=== PATIENT | female | born 1955 | race Caucasian/White ===

== ENCOUNTER → 2019-01-03 08:58 | Outpatient (CLI) | payer OTHER, SELFPAY ==
--- NOTE | 2019-01-03 09:13 | DI.CT.S_ITS ---
PROCEDURE: CT ANGIO CHEST INDICATIONS: Other forms of dyspnea TECHNIQUE: After the administration of intravenous contrast, 2 mm thick sections acquired from the pulmonary apices to the posterior costophrenic angles. 3-dimensional maximum intensity projection (MIP) coronal and sagittal reformats were then acquired through the thorax. For radiation dose reduction, the following was used: automated exposure control, adjustment of mA and/or kV according to patient size. COMPARISON: [facility], , CT PULMONARY EMBOLUS, 01/04/2006, 13:33. FINDINGS: Image quality: Excellent. Pulmonary arteries: Pulmonary arteries are normal in size, and demonstrate no intraluminal filling defects to suggest central pulmonary embolism. Lungs and pleura: The right lower lobe appears to have been resected. There is a surgical suture line within the right upper lobe, with adjacent scarring, extending to the right hilum. No pleural effusions or pneumothorax. Central and peripheral airways are patent. Mediastinum: Heart size is enlarged, without pericardial effusion. There is calcification of the coronary vasculature. No mediastinal or hilar adenopathy. Thoracic aorta is normal in caliber and enhancement. Esophagus is normal in caliber. There is a new small hiatal hernia. Bones and chest wall: Status post right thoracotomy. No suspicious bony lesions. Ribs and thoracic spine appear intact throughout. Thyroid gland is within normal limits as visualized. No axillary or supraclavicular adenopathy. Abdomen: Visualized portions of the upper abdomen demonstrate multiple calcifications within the gallbladder lumen, and are otherwise unremarkable. IMPRESSION: 1. Postsurgical sequelae. 2. No pulmonary embolus. 3. Coronary artery disease. 4. Small hiatal hernia. 5. Cholelithiasis. Dictated by: Sarah Barnard M.D. on 01/03/2019 at 11:11 Approved by: Sarah Barnard M.D. on 01/03/2019 at 11:18
== END ==
PROVIDERS: PCP Family Medicine; Visit Provider Family Medicine
DX: R06.09 Other forms of dyspnea (principal); I51.7 Cardiomegaly; K44.9 Diaphragmatic hernia without obstruction or gangrene; I25.10 Atherosclerotic heart disease of native coronary artery without angina pectoris; K80.20 Calculus of gallbladder without cholecystitis without obstruction; Z85.118 Personal history of other malignant neoplasm of bronchus and lung
CPT/HCPCS: 71275; Q9967

== ENCOUNTER → 2020-08-19 10:19 | Outpatient (CLI) | payer MEDICARE, SELFPAY ==
[2020-08-19 19:29] LABS: Add Manual Diff / Slide Review NO; Basophils Absolute Auto 100 /uL (0-100); Basophils Percent Auto 0.8 % (0-2); Eosinophils Absolute Auto 0 /uL (0-450); Eosinophils Percent Auto 0.3 % (2-4); Hematocrit 42.6 % (36-46); Hemoglobin 14.1 g/dL (12.0-16.0); Lymphocytes Absolute Auto 900 /uL (1100-4500); Mean Corpuscular Hemoglobin 31.3 PG (26-34); Mean Corpuscular Volume 94.8 fL (80-100); Monocytes Absolute Auto 500 /uL (0-900); Monocytes Percent Auto 6.7 % (3-14); Neutrophils Absolute Auto 5900 /uL (1500-7000); Neutrophils Percent Auto 80.2 % (50-75); Platelet Count 348 X10^3/uL (150-400); Red Blood Cell Count 4.49 X10^6/uL (4.0-5.2); Red Cell Distribution Width 14.7 % (11.6-14.8); White Blood Cell Count 7.3 X10^3/uL (4.5-11.0)
[2020-08-19 20:03] LABS: Alanine Aminotransferase 13 IU/L (<35); Albumin 4.1 g/dL (3.5-5.0); Albumin Globulin Ratio 1.5 (1.0-2.8); Alkaline Phosphatase 69 U/L (38-126); Aspartate Aminotransferase 23 IU/L (14-36); BUN Creatinine Ratio 24.2 (6-22); Bilirubin Total 1.2 mg/dL (0.2-1.3); Blood Urea Nitrogen 16 mg/dL (7-17); C-Reactive Protein Quant < 0.5 mg/dL (<1.0); Calcium 10.3 mg/dL (8.4-10.2); Carbon Dioxide 25 mmol/L (22-32); Chloride 104 mmol/L (98-107); Erythrocyte Sedimentation Rate 4 MM/HR (0-20); Estimated Glomerular Filt Rate > 60.0 mL/min (>60); Globulin 2.8 g/dL (1.7-4.1); Glucose 110 mg/dL (80-110); HEMOLYSIS < 15 (0-50); Potassium 4.3 mmol/L (3.4-5.1); Sodium 138 mmol/L (137-145); Total Protein 6.9 g/dL (6.3-8.2)
[2020-08-19 20:20] LABS: Free T3, Triiodothyronine Free 3.85 pg/mL (2.77-5.27)
[2020-08-19 20:34] LABS: TSH w/ Reflex to FT4 < 0.02 uIU/mL (0.47-4.68)
[2020-08-19 20:59] LABS: Free T4, Direct Thyroxine 1.72 ng/dL (0.78-2.19)
== END ==
PROVIDERS: PCP Family Medicine; Visit Provider Physician Assistant Medical
DX: M47.816 Spondylosis without myelopathy or radiculopathy, lumbar region (principal)
CPT/HCPCS: 80053; 84439; 84443; 84481; 85025; 85651; 86140

== ENCOUNTER → 2020-08-26 09:00 | Outpatient (CLI) | payer MEDICARE, SELFPAY ==
[2020-08-26 19:05] LABS: Alanine Aminotransferase 12 IU/L (<35); Albumin 4.2 g/dL (3.5-5.0); Albumin Globulin Ratio 1.6 (1.0-2.8); Alkaline Phosphatase 65 U/L (38-126); Aspartate Aminotransferase 22 IU/L (14-36); BUN Creatinine Ratio 17.1 (6-22); Bilirubin Total 1.3 mg/dL (0.2-1.3); Blood Urea Nitrogen 12 mg/dL (7-17); Calcium 10.4 mg/dL (8.4-10.2); Carbon Dioxide 27 mmol/L (22-32); Chloride 102 mmol/L (98-107); Estimated Glomerular Filt Rate > 60.0 mL/min (>60); Globulin 2.7 g/dL (1.7-4.1); Glucose 112 mg/dL (80-110); HEMOLYSIS 16 (0-50); Potassium 4.1 mmol/L (3.4-5.1); Sodium 138 mmol/L (137-145); Total Protein 6.9 g/dL (6.3-8.2)
[2020-08-26 19:22] LABS: Prolactin 3.7 ng/mL (3.0-18.6)
[2020-08-26 19:36] LABS: TSH w/ Reflex to FT4 0.25 uIU/mL (0.47-4.68)
[2020-08-26 20:23] LABS: Free T4, Direct Thyroxine 1.44 ng/dL (0.78-2.19)
[2020-08-28 12:09] LABS: Calcium 10.1 mg/dL (8.7-10.3); Parathyroid Hormone, Intact 34 pg/mL (15-65)
== END ==
PROVIDERS: PCP Physician Assistant Medical; Visit Provider Physician Assistant Medical
DX: E83.52 Hypercalcemia (principal); M47.816 Spondylosis without myelopathy or radiculopathy, lumbar region; R25.1 Tremor, unspecified; R53.83 Other fatigue
CPT/HCPCS: 80053; 82310; 83970; 84146; 84439; 84443

== ENCOUNTER 2020-09-03 13:40 | Emergency (ER) | payer MEDICARE, SELFPAY ==
[2020-09-03] VITALS (15 sets, daily range): BP systolic 155–179; BP diastolic 77–98; PULSE 62–89; RESP 12–27; TEMP 36.8–37; O2SAT 93–98; BMI 21.6
--- NOTE | 2020-09-03 14:02 | DI.CT.S_ITS ---
PROCEDURE: CT HEAD/BRAIN WO CON INDICATIONS: dizzy, gait changes, h/o lung cancer with chemo 2006 TECHNIQUE: Noncontrast 4.5 mm thick angled axial sections acquired from the foramen magnum to the vertex, with coronal and sagittal reformats. For radiation dose reduction, the following was used: automated exposure control, adjustment of mA and/or kV according to patient size. COMPARISON: None. FINDINGS: Image quality: Excellent. CSF spaces: Basal cisterns are patent. No extra-axial fluid collections. The ventricles are symmetric in size and shape. A arachnoid cyst is suspected in the left side of the posterior fossa. Brain: No intracranial bleeds or masses. There is mild cerebral volume loss for age, with resultant ventricular and sulcal prominence. There are mild periventricular and deep white matter chronic small vessel ischemic changes. There is intracranial internal carotid artery atherosclerosis. Skull and face: Calvarium and visualized facial bones appear intact, without suspicious lesions. Sinuses: Visualized sinuses and mastoids are clear. IMPRESSION: 1. No acute intracranial abnormalities on this noncontrast enhanced CT. If clinical suspicion for cerebral metastasis is high, MRI with and without contrast is suggested for follow-up evaluation. Dictated by: Maria Guadalupe Weaver M.D. on 09/03/2020 at 15:11 Approved by: Maria Guadalupe Weaver M.D. on 09/03/2020 at 15:14
[2020-09-03 14:35] LABS: Add Manual Diff / Slide Review NO; Basophils Absolute Auto 0 /uL (0-100); Basophils Percent Auto 0.6 % (0-2); Eosinophils Absolute Auto 0 /uL (0-450); Eosinophils Percent Auto 0.6 % (2-4); Hematocrit 42.3 % (36-46); Lymphocytes Absolute Auto 1200 /uL (1100-4500); Mean Corpuscular HGB Conc 33.1 % (30-36); Mean Corpuscular Hemoglobin 31.1 PG (26-34); Monocytes Absolute Auto 600 /uL (0-900); Monocytes Percent Auto 7.7 % (3-14); Neutrophils Absolute Auto 5400 /uL (1500-7000); Neutrophils Percent Auto 75.1 % (50-75); Platelet Count 348 X10^3/uL (150-400); Red Blood Cell Count 4.49 X10^6/uL (4.0-5.2); Red Cell Distribution Width 14.6 % (11.6-14.8); White Blood Cell Count 7.2 X10^3/uL (4.5-11.0)
[2020-09-03 14:45] LABS: Alanine Aminotransferase 14 IU/L (<35); Albumin 4.3 g/dL (3.5-5.0); Albumin Globulin Ratio 1.5 (1.0-2.8); Alkaline Phosphatase 44 U/L (38-126); Aspartate Aminotransferase 27 IU/L (14-36); BUN Creatinine Ratio 17.5 (6-22); Bilirubin Total 1.5 mg/dL (0.2-1.3); Blood Urea Nitrogen 10 mg/dL (7-17); Calcium 9.8 mg/dL (8.4-10.2); Carbon Dioxide 25 mmol/L (22-32); Chloride 105 mmol/L (98-107); Estimated Glomerular Filt Rate > 60.0 mL/min (>60); Globulin 2.9 g/dL (1.7-4.1); Glucose 154 mg/dL (80-110); Potassium 5.2 mmol/L (3.4-5.1); Sodium 137 mmol/L (137-145); Total Protein 7.2 g/dL (6.3-8.2)
[2020-09-03 14:51] LABS: HEMOLYSIS 104 (0-50)
--- NOTE | 2020-09-03 16:52 | ED_ITS ---
HPI - General Adult <Nelda Chow MD - Last Filed: 09/03/20 18:18> General Chief complaint: Dizziness Stated complaint: referred by PA-C for weight loss, shaking, stress Time Seen by Provider: 09/03/20 14:01 Source: patient and family Mode of arrival: Ambulatory History of Present Illness HPI narrative: 64-year-old woman with a distant history of lung cancer treated with surgery and chemo and has been disease free for approximately 20 years, presents with worsening constellation of symptoms over the past 2 months. She states that her symptoms started on July 02 after 4 days of a very stressful episode. Coming out of those 4 days she felt something was ?wrong?. She describes an odd gait that is actually of wide-based normal shuffling type gait, increasing hand tremor dizzy when she is turning over in bed and a 20 lb weight loss associated with no appetite increasing weakness and description of significant stress interfering with sleep. She does not describe any pain. She notes that her bowels have not been as frequent but she has not been eating as much. She has been trying to increase protein with protein shakes to try and slow the weight loss. She does not describe headaches. She does note a change in her handwriting skills, she is right-handed and a bit more difficulty with her right leg. She specifically complains of no fevers or chills, no vomiting, no diarrhea, no abdominal pain, no dyspnea or orthopnea. Related Data Home Medications Medication Instructions Recorded Confirmed flecainide 100 mg PO BID PRN #0 11/09/15 08/26/20 acetaminophen PO 07/27/20 08/26/20 biotin PO 07/27/20 08/26/20 cholecalciferol (vitamin D3) 50 50 mcg PO DAILY 07/27/20 08/26/20 mcg (2,000 unit) capsule magnesium chloride PO 07/27/20 08/26/20 vitamin B complex PO 08/19/20 08/26/20 Allergies Allergy/AdvReac Type Severity Reaction Status Date / Time diphenhydramine Allergy Mild Verified 09/03/20 13:51 [From Benadryl] paclitaxel [From TAXOL] Allergy Mild Verified 09/03/20 13:51 lorazepam [From Ativan] Allergy Unknown Verified 09/03/20 13:51 adhesive AdvReac Unknown rash Verified 09/03/20 13:51 Review of Systems <Nelda Chow MD - Last Filed: 09/03/20 18:18> Review of Systems Narrative: Remainder of complete review of systems is otherwise unremarkable except for that included in the HPI. 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 Able to give a complete and coherent history. Well-nourished well-developed HEENT: Moist mucous membranes, normal sclera with reactive pupils, extraocular eye movement is intact Neck: No JVD, supple Respiratory: Lungs are clear to auscultation, no wheezing no rales no rhonchi. Full and symmetrical air movement Cardiac: Regular rate and rhythm no murmurs no bruits Abdomen: Soft, nontender, good bowel tones, no flank pain Skin: Warm and dry, no rashes Neurologic: Subtle neurologic abnormalities include a fine tremor with extension. Increased instability with Romberg testing. Slightly wide-based shuffling gait. She is able to stand on either leg independently but feels that she is less steady and weaker on the right side. There is no sensory changes that she is appreciated. NIH score is 0 Extremities: No trauma, well perfused Psych: Cooperative, appropriate insight and affect Initial Vital Signs Initial Vital Signs: Vital Signs Temperature 98.6 F 09/03/20 13:47 Pulse Rate 89 09/03/20 13:47 Respiratory Rate 12 09/03/20 13:47 Blood Pressure 164/87 H 09/03/20 13:47 Pulse Oximetry 96 09/03/20 13:47 <Vickie Odom DO - Last Filed: 09/04/20 01:29> Initial Vital Signs Initial Vital Signs: Vital Signs Temperature 98.6 F 09/03/20 13:47 Pulse Rate 89 09/03/20 13:47 Respiratory Rate 12 09/03/20 13:47 Blood Pressure 164/87 H 09/03/20 13:47 Pulse Oximetry 96 09/03/20 13:47 Course <Nelda Chow MD - Last Filed: 09/03/20 18:18> Orders Ordered: ED Orders 09/03/20 17:14 MR head/brain wo/w con Stat XR chest 2V Stat Vital Signs Vital signs: Vital Signs - 8 hr 09/03/20 17:30 09/03/20 18:00 09/03/20 18:53 Temperature Pulse Rate 69 65 62 Respiratory Rate 27 H 21 Blood Pressure 167/84 H 155/82 H Pulse Oximetry 96 97 93 09/03/20 18:54 09/03/20 19:00 09/03/20 19:30 Temperature Pulse Rate 64 65 66 Respiratory Rate Blood Pressure 169/83 H Pulse Oximetry 98 98 98 09/03/20 20:00 09/03/20 20:16 09/03/20 20:30 Temperature 98.3 F Pulse Rate 66 74 Respiratory Rate Blood Pressure 155/77 H Pulse Oximetry 96 95 <Vickie Odom DO - Last Filed: 09/04/20 01:29> Orders Ordered: ED Orders 09/03/20 17:14 MR head/brain wo/w con Stat XR chest 2V Stat Vital Signs Vital signs: Vital Signs - 8 hr 09/03/20 17:30 09/03/20 18:00 09/03/20 18:53 Temperature Pulse Rate 69 65 62 Respiratory Rate 27 H 21 Blood Pressure 167/84 H 155/82 H Pulse Oximetry 96 97 93 09/03/20 18:54 09/03/20 19:00 09/03/20 19:30 Temperature Pulse Rate 64 65 66 Respiratory Rate Blood Pressure 169/83 H Pulse Oximetry 98 98 98 09/03/20 20:00 09/03/20 20:16 09/03/20 20:30 Temperature 98.3 F Pulse Rate 66 74 Respiratory Rate Blood Pressure 155/77 H Pulse Oximetry 96 95 Medical Decision Making <Nelda Chow MD - Last Filed: 09/03/20 18:18> Medical Records Medical records reviewed: Yes I reviewed the patient's medical records. Lab Data Lab results reviewed: Yes I reviewed the patient's lab results. Result diagrams: 09/03/20 14:25 09/03/20 14:25 Labs: Lab Results 09/03/20 09/03/20 Range/Units 14:25 14:25 WBC 7.2 (4.5-11.0) X10^3/uL RBC 4.49 (4.0-5.2) X10^6/uL Hgb 14.0 (12.0-16.0) g/dL Hct 42.3 (36-46) % MCV 94.0 (80-100) fL MCH 31.1 (26-34) PG MCHC 33.1 (30-36) % RDW 14.6 (11.6-14.8) % Plt Count 348 (150-400) X10^3/uL Neut % (Auto) 75.1 H (50-75) % Lymph % (Auto) 16.0 L (25-40) % Wilkinson % (Auto) 7.7 (3-14) % Eos % (Auto) 0.6 L (2-4) % Baso % (Auto) 0.6 (0-2) % Neut # (Auto) 5400 (4691-9680) /uL Lymph # (Auto) 1200 (2109-4644) /uL Wilkinson # (Auto) 600 (0-900) /uL Eos # (Auto) 0 (0-450) /uL Baso # (Auto) 0 (0-100) /uL Sodium 137 (137-145) mmol/L Potassium 5.2 H (3.4-5.1) mmol/L Chloride 105 (98-107) mmol/L Carbon Dioxide 25 (22-32) mmol/L BUN 10 (7-17) mg/dL Creatinine 0.57 (0.52-1.04) mg/dL Estimated GFR > 60.0 (>60) mL/min BUN/Creatinine Ratio 17.5 (6-22) Glucose 154 H (80-110) mg/dL Calcium 9.8 (8.4-10.2) mg/dL Magnesium 2.0 (1.6-2.3) mg/dL Total Bilirubin 1.5 H (0.2-1.3) mg/dL AST 27 (14-36) IU/L ALT 14 (<35) IU/L Alkaline Phosphatase 44 (38-126) U/L Total Protein 7.2 (6.3-8.2) g/dL Albumin 4.3 (3.5-5.0) g/dL Globulin 2.9 (1.7-4.1) g/dL Albumin/Globulin Ratio 1.5 (1.0-2.8) Urine Dip Bedside Urine Glucose Negative Bedside Urine Bilirubin - Negative Bedside Urine Ketone - Negative Urine Specific Bartley 1.015 Bedside Urine Occult Blood - Negative Bedside Urine pH 7.0 Bedside Urine Protein - Negative Bedside Urine Urobilinogen - Negative Bedside Urine Nitrite - Negative Bedside Urine Leukocytes - Negative Esterase Point of care testing: Urine Dip Bedside Urine Glucose Negative Bedside Urine Bilirubin - Negative Bedside Urine Ketone - Negative Urine Specific Bartley 1.015 Bedside Urine Occult Blood - Negative Bedside Urine pH 7.0 Bedside Urine Protein - Negative Bedside Urine Urobilinogen - Negative Bedside Urine Nitrite - Negative Bedside Urine Leukocytes - Negative Esterase Imaging Data CT scan - head: Radiologist's Impression: FINDINGS: Image quality: Excellent. CSF spaces: Basal cisterns are patent. No extra-axial fluid collections. The ventricles are symmetric in size and shape. A arachnoid cyst is suspected in the left side of the posterior fossa. Brain: No intracranial bleeds or masses. There is mild cerebral volume loss for age, with resultant ventricular and sulcal prominence. There are mild periventricular and deep white matter chronic small vessel ischemic changes. There is intracranial internal carotid artery atherosclerosis. Skull and face: Calvarium and visualized facial bones appear intact, without suspicious lesions. Sinuses: Visualized sinuses and mastoids are clear. IMPRESSION: 1. No acute intracranial abnormalities on this noncontrast enhanced CT. If clinical suspicion for cerebral metastasis is high, MRI with and without contrast is suggested for follow-up evaluation. Dictated by: Maria Guadalupe Weaver M.D. on 09/03/2020 at 15:11 Chest x-ray: Radiologist's Impression: FINDINGS: Surgical changes and devices: Staple line projecting in the right apex. Lungs and pleura: Scattered subsegmental scarring and/or atelectasis. No acute consolidation. No pleural effusions or pneumothorax. Mediastinum: Mediastinal contours are normal. Heart size is normal. Bones and chest wall: No suspicious bony abnormalities. Soft tissues appear unremarkable. IMPRESSION: No acute disease. Dictated by: Tito Floyd M.D. on 09/03/2020 at 17:45 MDM Narrative Medical decision making narrative: 64-year-old woman with 2 months of weight loss, progressive weakness, subtle right-sided findings including hand writing difficulty and less ability to balance on her right leg. Overall loss of appe tite, poor sleep and increased anxiety. Initial blood work is unremarkable and head CT is somewhat reassuring. Chest x- ray is currently pending. Based on her findings possibility of a brainstem str elie or small tumor is entertained and an MRI of the brain with and without contrast is ordered. Given the lack of findings on chest and abdomen exam not sure that CT scanning is appropriate yet. Chest x-ray is unremarkable. MRI is range for 6:00 p.m. tonight. Care is turned over to Dr. Odom <Vickie Odom, DO - Last Filed: 09/04/20 01:29> Lab Data Labs: Lab Results 09/03/20 09/03/20 Range/Units 14:25 14:25 WBC 7.2 (4.5-11.0) X10^3/uL RBC 4.49 (4.0-5.2) X10^6/uL Hgb 14.0 (12.0-16.0) g/dL Hct 42.3 (36-46) % MCV 94.0 (80-100) fL MCH 31.1 (26-34) PG MCHC 33.1 (30-36) % RDW 14.6 (11.6-14.8) % Plt Count 348 (150-400) X10^3/uL Neut % (Auto) 75.1 H (50-75) % Lymph % (Auto) 16.0 L (25-40) % Wilkinson % (Auto) 7.7 (3-14) % Eos % (Auto) 0.6 L (2-4) % Baso % (Auto) 0.6 (0-2) % Neut # (Auto) 5400 (4577-8178) /uL Lymph # (Auto) 1200 (5328-5321) /uL Wilkinson # (Auto) 600 (0-900) /uL Eos # (Auto) 0 (0-450) /uL Baso # (Auto) 0 (0-100) /uL Sodium 137 (137-145) mmol/L Potassium 5.2 H (3.4-5.1) mmol/L Chloride 105 (98-107) mmol/L Carbon Dioxide 25 (22-32) mmol/L BUN 10 (7-17) mg/dL Creatinine 0.57 (0.52-1.04) mg/dL Estimated GFR > 60.0 (>60) mL/min BUN/Creatinine Ratio 17.5 (6-22) Glucose 154 H (80-110) mg/dL Calcium 9.8 (8.4-10.2) mg/dL Magnesium 2.0 (1.6-2.3) mg/dL Total Bilirubin 1.5 H (0.2-1.3) mg/dL AST 27 (14-36) IU/L ALT 14 (<35) IU/L Alkaline Phosphatase 44 (38-126) U/L Total Protein 7.2 (6.3-8.2) g/dL Albumin 4.3 (3.5-5.0) g/dL Globulin 2.9 (1.7-4.1) g/dL Albumin/Globulin Ratio 1.5 (1.0-2.8) Urine Dip Bedside Urine Glucose Negative Bedside Urine Bilirubin - Negative Bedside Urine Ketone - Negative Urine Specific Bartley 1.015 Bedside Urine Occult Blood - Negative Bedside Urine pH 7.0 Bedside Urine Protein - Negative Bedside Urine Urobilinogen - Negative Bedside Urine Nitrite - Negative Bedside Urine Leukocytes - Negative Esterase Point of care testing: Urine Dip Bedside Urine Glucose Negative Bedside Urine Bilirubin - Negative Bedside Urine Ketone - Negative Urine Specific Bartley 1.015 Bedside Urine Occult Blood - Negative Bedside Urine pH 7.0 Bedside Urine Protein - Negative Bedside Urine Urobilinogen - Negative Bedside Urine Nitrite - Negative Bedside Urine Leukocytes - Negative Esterase Imaging Data MR brain: Radiologist's Impression: PROCEDURE: MR HEAD/BRAIN WO/W CON INDICATIONS: right side weakness, weight loss, gait change, tremor, dizzy TECHNIQUE: Noncontrast axial T1 spin echo, axial T2 fast spin echo, sagittal and axial FLAIR, coronal T2 fast spin echo, axial gradient echo, axial diffusion and ADC through the brain. After the administration of contrast, axial and coronal T1 spin echo with fat saturation through the brain. COMPARISON: None. FINDINGS: Image quality: Excellent. CSF spaces: Basal cisterns are patent. No extra-axial fluid collections. Ventricles are normal in size and shape. Brain: No midline shift. No intracranial bleeds or masses. No abnormal intracranial enhancement. There is cerebral volume loss for age. There is periventricular white matter chronic small vessel ischemic change. The brainstem appears normal. Diffusion-weighted images demonstrate no acute ischemic insults. No chronic ischemic insults. Normal intravascular flow voids are present. Skull and face: Calvarial marrow is normal in signal. Orbits appear normal. Sinuses: Sinuses and mastoids appear clear. IMPRESSION: No evidence of acute ischemia. No acute intracranial signal abnormality or enhancement. Dictated by: Tito Floyd M.D. on 09/03/2020 at 20:08 [facility] Narrative Medical decision making narrative: Received sign-out from Dr. Chow is seen evaluated patient myself. She has been having ongoing symptoms is for a number of weeks nothing new today. MRI head CT and blood work were overall reassuring however symptoms are still concerning. At this time I discussed his with the patient in significant other will likely need referral to Neurology in further outpatient testing and close follow-up. They have an appointment already with PCP for next week. Discharge Plan Departure Patient Disposition: Home Clinical Impression: Dizziness Instructions: DI for Dizziness-Nonvertigo Activity Restrictions/Additional Instructions: *You have been diagnosed with dizziness *What to do: At this time you had workup in the emergency department which included head CT MRI brain and blood work all of which were reassuring. However it is recommended based on your symptoms that you have a neurology referral. *Continue to take medications as directed *Follow up with your primary care provider in 2-3 days *Return to ER if you should have increased falls, balance issues, weakness, visual changes speech changes, chest pain palpitations or shortness of breath or any new, worsening or concerning symptoms Prescriptions: No Action flecainide 100 MG tablet 100 mg PO BID PRNQty: 0 RF: 0 vitamin B complex PO RF: 0 biotin PO RF: 0 acetaminophen PO RF: 0 cholecalciferol (vitamin D3) 50 mcg (2,000 unit) capsule 50 mcg PO DAILY RF: 0 magnesium chloride PO RF: 0 Referrals: Phuong Gonzales PA-C [Primary Care Provider] -
--- NOTE | 2020-09-03 17:14 | DI.RAD.S_ITS ---
PROCEDURE: XR CHEST 2V INDICATIONS: weight loss, distant h/o right side lung cancer TECHNIQUE: 2 views of the chest were acquired. COMPARISON: None. FINDINGS: Surgical changes and devices: Staple line projecting in the right apex. Lungs and pleura: Scattered subsegmental scarring and/or atelectasis. No acute consolidation. No pleural effusions or pneumothorax. Mediastinum: Mediastinal contours are normal. Heart size is normal. Bones and chest wall: No suspicious bony abnormalities. Soft tissues appear unremarkable. IMPRESSION: No acute disease. Dictated by: Tito Floyd M.D. on 09/03/2020 at 17:45 Approved by: Tito Floyd M.D. on 09/03/2020 at 17:46
--- NOTE | 2020-09-03 17:14 | DI.MRI.S_ITS ---
PROCEDURE: MR HEAD/BRAIN WO/W CON INDICATIONS: right side weakness, weight loss, gait change, tremor, dizzy TECHNIQUE: Noncontrast axial T1 spin echo, axial T2 fast spin echo, sagittal and axial FLAIR, coronal T2 fast spin echo, axial gradient echo, axial diffusion and ADC through the brain. After the administration of contrast, axial and coronal T1 spin echo with fat saturation through the brain. COMPARISON: None. FINDINGS: Image quality: Excellent. CSF spaces: Basal cisterns are patent. No extra-axial fluid collections. Ventricles are normal in size and shape. Brain: No midline shift. No intracranial bleeds or masses. No abnormal intracranial enhancement. There is cerebral volume loss for age. There is periventricular white matter chronic small vessel ischemic change. The brainstem appears normal. Diffusion-weighted images demonstrate no acute ischemic insults. No chronic ischemic insults. Normal intravascular flow voids are present. Skull and face: Calvarial marrow is normal in signal. Orbits appear normal. Sinuses: Sinuses and mastoids appear clear. IMPRESSION: No evidence of acute ischemia. No acute intracranial signal abnormality or enhancement. Dictated by: Tito Floyd M.D. on 09/03/2020 at 20:08 Approved by: Tito Floyd M.D. on 09/03/2020 at 20:11
== END 2020-09-03 20:31 | disposition home or self-care (01) ==
PROVIDERS: Emergency Medicine; Emergency Provider Emergency Medicine; PCP Physician Assistant Medical
DX: R42 Dizziness and giddiness (principal); R53.1 Weakness; R63.4 Abnormal weight loss; Z85.118 Personal history of other malignant neoplasm of bronchus and lung
CPT/HCPCS: 36415; 70450; 70553; 71046; 80053; 81003; 83735; 85025; 99284; A9579

== ENCOUNTER 2020-10-09 13:51 | Emergency (ER) | payer MEDICARE, SELFPAY ==
[2020-10-09] VITALS (8 sets, daily range): BP systolic 145–171; BP diastolic 70–89; PULSE 64–85; RESP 17–18; TEMP 36.4; O2SAT 94–99; BMI 19.4
[2020-10-09 14:48] LABS: Add Manual Diff / Slide Review NO; Basophils Absolute Auto 0 /uL (0-100); Basophils Percent Auto 0.7 % (0-2); Eosinophils Absolute Auto 0 /uL (0-450); Eosinophils Percent Auto 0.5 % (2-4); Hematocrit 42.4 % (36-46); Hemoglobin 14.4 g/dL (12.0-16.0); Lymphocytes Absolute Auto 1000 /uL (1100-4500); Mean Corpuscular Volume 94.3 fL (80-100); Monocytes Absolute Auto 700 /uL (0-900); Monocytes Percent Auto 8.8 % (3-14); Neutrophils Absolute Auto 5800 /uL (1500-7000); Platelet Count 306 X10^3/uL (150-400); Red Blood Cell Count 4.49 X10^6/uL (4.0-5.2); Red Cell Distribution Width 14.5 % (11.6-14.8); White Blood Cell Count 7.5 X10^3/uL (4.5-11.0)
[2020-10-09 14:56] LABS: Alanine Aminotransferase 17 IU/L (<35); Albumin 4.1 g/dL (3.5-5.0); Albumin Globulin Ratio 1.6 (1.0-2.8); Alkaline Phosphatase 55 U/L (38-126); Aspartate Aminotransferase 22 IU/L (14-36); BUN Creatinine Ratio 19.5 (6-22); Bilirubin Total 1.1 mg/dL (0.2-1.3); Blood Urea Nitrogen 16 mg/dL (7-17); Calcium 9.8 mg/dL (8.4-10.2); Carbon Dioxide 27 mmol/L (22-32); Chloride 102 mmol/L (98-107); Estimated Glomerular Filt Rate > 60.0 mL/min (>60); Globulin 2.6 g/dL (1.7-4.1); Glucose 100 mg/dL (80-110); HEMOLYSIS < 15 (0-50); Potassium 3.9 mmol/L (3.4-5.1); Sodium 138 mmol/L (137-145); Total Protein 6.7 g/dL (6.3-8.2)
--- NOTE | 2020-10-09 16:22 | ED_ITS ---
HPI - Weakness General Chief complaint: Weakness Stated complaint: weakness Time Seen by Provider: 10/09/20 14:45 Source: patient and family Mode of arrival: Ambulatory Limitations: no limitations History of Present Illness HPI Narrative: Patient is a 64-year-old female with remote history of lung cancer currently being worked up for parkinsonism, presenting today with increased weakness. She and state she has actually seen evaluated here September 03 where she had full workup for dizziness including MRI. His but thought at that time she might have the beginnings of parkinsonism. She got set up with [facility] who she was then referred to a movement disorder specialist whom she saw remotely 1 week ago. In that specific provider was concerned for possible underlying cancer. She has had a 35 lb weight loss over the last 3 months. She has early satiety. states that she generally w akes up his weak and possibly get strength throughout the day. However today she stays she was little weaker than normal she is quite anxious about what the last provider said in regards to an underlying malignancy. They have an appointment with a new primary care provider on Monday which is in about 5 days. states that she has a shuffling gait she holds her hands close to her her handwriting has gotten small all things coinciding with Parkinson's Related Data Home Medications Medication Instructions Recorded Confirmed flecainide 100 mg tablet 100 mg PO BID PRN #0 11/09/15 09/10/20 acetaminophen PO 07/27/20 09/10/20 biotin PO 07/27/20 09/10/20 cholecalciferol (vitamin D3) 50 50 mcg PO DAILY 07/27/20 09/10/20 mcg (2,000 unit) capsule magnesium chloride PO 07/27/20 09/10/20 vitamin B complex [B PO 08/19/20 09/10/20 Complex-Vitamin B12] Allergies Allergy/AdvReac Type Severity Reaction Status Date / Time diphenhydramine Allergy Mild Verified 10/09/20 14:14 [From Benadryl] paclitaxel [From TAXOL] Allergy Mild Verified 10/09/20 14:14 lorazepam [From Ativan] Allergy Unknown Verified 10/09/20 14:14 adhesive AdvReac Unknown rash Verified 10/09/20 14:14 Review of Systems Review of Systems Narrative: GENERAL: Denies chills, fatigue, malaise, fever, sweats, travel HEENT: Denies sinus pain, ear pain, sore throat, difficulty swallowing, neck pain RESPIRATORY: Denies dyspnea, cough, wheezing, hemoptysis, sputum. CARDIOVASCULAR: Denies chest pain, palpitations, orthopnea, edema GASTROINTESTINAL: Denies nausea, vomiting, abdominal pain, diarrhea, c onstipation, melena. : Denies dysuria, frequency, incontinence, hematuria, urinary retention, flank pain. MUSCULOSKELETAL: Denies weakness, joint pain, or bony pain SKIN: No rash, no erythema, no pruritus NEUROLOGIC: See HPI PSYCHIATRIC: No concerning psychosocial issues. 12 point review of systems is negative except for those stated above and HPI ROS Unobtainable: All systems reviewed & are unremarkable except as noted in HPI and below Constitutional Constitutional: Reports anorexia, Reports fatigue, Reports poor appetite, Reports weakness and Reports weight loss ENT Ears, Nose, Mouth, and Throat: Reports dizziness Cardiovascular Cardiovascular: Denies chest pain, Denies irregular heart rhythm, Denies leg edema and Denies dyspnea Respiratory Respiratory: Denies cough and Denies dyspnea Gastrointestinal Gastrointestinal: Reports as per HPI, Denies melena and Reports nausea Genitourinary Genitourinary: Denies urinary hesitancy and Denies urinary urgency Integumentary/Breasts Skin/Breast: Denies rash and Denies skin pain Neurologic Neurologic: Reports dizziness and Reports weakness Endocrine Endocrine: Reports fatigue Patient History Medical History Arthritis, lumbar spine AYALA (dyspnea on exertion) Neoplasm of uncertain behavior of skin PSVT (paroxysmal supraventricular tachycardia) 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 RESPIRATORY: Breath sounds equal bilaterally, no wheezes rales or rhonchi. ABDOMEN: Soft, nontender. Normoactive bowel sounds all 4 quadrants. No guarding or rebound. EXTREMITIES: Normal range of motion, no clubbing or edema. Neurovascularly intact NEUROLOGICAL: Alert and oriented x4.Normal gait and speech. Cranial nerves II through XII grossly intact. 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 Course Orders Ordered: ED Orders 10/09/20 14:16 EKG-12 Lead Stat 10/09/20 14:34 Complete Blood Count AUTO DIFF Stat Comprehensive Metabolic Panel Stat 10/09/20 16:36 CT chest abd pel w con Stat Discontinued Medications Sodium Chloride (Normal Saline 0.9%) 1,000 mls @ 1,000 mls/hr IV BOLUS ONE Stop: 10/09/20 17:58 Last Infusion: 10/09/20 18:04 Dose: 0 mls/hr Documented by: Admin: 10/09/20 17:00 Dose: 1,000 mls/hr Documented by: CASANDRA Vital Signs Vital signs: Vital Signs - 8 hr 10/09/20 14:01 10/09/20 14:36 10/09/20 14:37 Temperature 97.6 F Pulse Rate 85 67 81 Respiratory Rate 18 Blood Pressure 169/89 H 151/84 H Pulse Oximetry 98 94 98 10/09/20 15:00 10/09/20 16:00 10/09/20 17:01 Temperature Pulse Rate 77 64 74 Respiratory Rate 18 17 17 Blood Pressure 145/72 H 160/70 H 162/77 H Pulse Oximetry 97 99 99 10/09/20 17:51 10/09/20 18:13 Temperature Pulse Rate 70 71 Respiratory Rate 17 17 Blood Pressure 152/75 H 171/74 H Pulse Oximetry 97 99 MDM - Weakness Lab Data Attestation: I reviewed the patient's lab results. Result diagrams: 10/09/20 14:34 10/09/20 14:34 Labs: Lab Results 10/09/20 10/09/20 Range/Units 14:34 14:34 WBC 7.5 (4.5-11.0) X10^3/uL RBC 4.49 (4.0-5.2) X10^6/uL Hgb 14.4 (12.0-16.0) g/dL Hct 42.4 (36-46) % MCV 94.3 (80-100) fL MCH 32.0 (26-34) PG MCHC 34.0 (30-36) % RDW 14.5 (11.6-14.8) % Plt Count 306 (150-400) X10^3/uL Neut % (Auto) 77.0 H (50-75) % Lymph % (Auto) 13.0 L (25-40) % [place] % (Auto) 8.8 (3-14) % Eos % (Auto) 0.5 L (2-4) % Baso % (Auto) 0.7 (0-2) % Neut # (Auto) 5800 (4493-3231) /uL Lymph # (Auto) 1000 L (6183-4145) /uL [place] # (Auto) 700 (0-900) /uL Eos # (Auto) 0 (0-450) /uL Baso # (Auto) 0 (0-100) /uL Sodium 138 (137-145) mmol/L Potassium 3.9 (3.4-5.1) mmol/L Chloride 102 (98-107) mmol/L Carbon Dioxide 27 (22-32) mmol/L BUN 16 (7-17) mg/dL Creatinine 0.82 (0.52-1.04) mg/dL Estimated GFR > 60.0 (>60) mL/min BUN/Creatinine Ratio 19.5 (6-22) Glucose 100 (80-110) mg/dL Calcium 9.8 (8.4-10.2) mg/dL Total Bilirubin 1.1 (0.2-1.3) mg/dL AST 22 (14-36) IU/L ALT 17 (<35) IU/L Alkaline Phosphatase 55 (38-126) U/L Total Protein 6.7 (6.3-8.2) g/dL Albumin 4.1 (3.5-5.0) g/dL Globulin 2.6 (1.7-4.1) g/dL Albumin/Globulin Ratio 1.6 (1.0-2.8) Urine Dip Bedside Urine Glucose Negative Bedside Urine Bilirubin - Negative Bedside Urine Ketone +/- 5 Urine Specific [place] 1.010 Bedside Urine Occult Blood - Negative Bedside Urine pH 6.5 Bedside Urine Protein - Negative Bedside Urine Urobilinogen - Negative Bedside Urine Nitrite - Negative Bedside Urine Leukocytes - Negative Esterase Imaging Data CT scan - abdomen/pelvis: Radiologist Impression: PROCEDURE: CT CHEST ABD PEL W CON INDICATIONS: weakness, hx of cancer, early satiety TECHNIQUE: After the administration of oral and intravenous contrast, axial sections acquired from the supraclavicular neck to the pubic symphysis. Coronal and sagittal reformats were performed. For radiation dose reduction, the following was used: automated exposure control, adjustment of mA and/or kV according to patient size. COMPARISON: [facility], CT, CT ANGIO CHEST, 01/03/2019, 9:30. FINDINGS: Image quality: Excellent. CHEST: Lower Neck: No enlarged lymph nodes. Thyroid: Normal where well seen Axillae: No enlarged lymph nodes. Chest Wall: Unremarkable. Lungs and Airways: No consolidation or suspicious nodules. Pleura: No pneumothorax or pleural effusions. Heart: Heart size is normal. No pericardial effusion. Thoracic Vessels: The aorta and pulmonary arteries demonstrate normal size. Mediastinum and Doris: No enlarged lymph nodes. Esophagus: No wall thickening. No hiatal hernia. ABDOMEN: Liver: Unremarkable. Incidental note is made of focal fatty infiltration at the anterior margin of the fissure for the falciform ligament, a common finding. Gallbladder: The gallbladder contains twila gallstones but there is no evidence of acute cholecystitis or biliary obstruction. Biliary ducts: Unremarkable. Pancreas: Unremarkable. Spleen: Unremarkable. Adrenal Glands: Unremarkable. Kidneys and Ureters: Unremarkable. Stomach and Bowel: Stomach, small bowel loops, and colon are unremarkable. Generalized colonic obstipation. Peritoneum: No abnormal intraperitoneal fluid. No free air. Ventral Wall: No hernia. Abdominal Nodes: No retroperitoneal or mesenteric adenopathy by size criteria. Vessels: Aorta and inferior vena cava are normal in size. PELVIS: Pelvic Organs: Unremarkable. Bladder: Unremarkable. Pelvic Nodes: No enlarged lymph nodes. Miscellaneous: No inguinal hernias are seen. Generalized colonic obstipation without evidence of intestinal obstruction or perforation. Bones: Unremarkable. IMPRESSION: No evidence of metastatic disease. Note is made of several peripherally calcified gallstones moderate in size within the gallbladder lumen but there is no evidence of acute cholecystitis or adjacent biliary distension. Note is made of generalized colonic obstipation, without obstructive mass as the underlying cause identified. Dictated by: Jake Stein M.D. on 10/09/2020 at 17:06 ECG Data Attestation: I personally reviewed and interpreted this ECG as follows: Prior ECG tracings: not available for review Interpretation: Sinus rhythm artifact noted no ST changes, rate 83 OR interval 130 QRS 78 QTC 40 MDM Narrative Medical decision making narrative: Patient blood work and scans are overall reassuring. She is given IV fluid in the ED. At this time it sounds though she has good outpatient follow-up for her ongoing neurologic problem. No underlying malignancy is identified. Patient and are given results are happy to go home. She has no new neurologic deficits she had MRI 1 month ago. This time I see no need to repeat head imaging at this time. She has good outpatient follow-up Discharge Plan Departure Patient Disposition: Home Clinical Impression: Parkinsonism Qualifiers: Parkinsonism type: unspecified Qualified Code(s): G20 - Parkinson's disease Instructions: Parkinson Disease Activity Restrictions/Additional Instructions: *You have been diagnosed with parkinsonism *What to do: At this time blood work and CT do not show any underlying malignancy. Sounds as though you are in good hands with [facility] and mint specialist. *Continue to take medications as directed *Follow up with your primary care provider next week as scheduled *Return to ER if you should have dizziness lightheadedness, falls or any new, worsening or concerning symptoms Prescriptions: No Action flecainide 100 MG tablet 100 mg PO BID PRNQty: 0 RF: 0 vitamin B complex PO RF: 0 biotin PO RF: 0 acetaminophen PO RF: 0 cholecalciferol (vitamin D3) 50 mcg (2,000 unit) capsule 50 mcg PO DAILY RF: 0 magnesium chloride PO RF: 0 Referrals: New Min MD [Physician] - Phuong Gonzales PA-C [Primary Care Provider] -
--- NOTE | 2020-10-09 16:36 | DI.CT.S_ITS ---
PROCEDURE: CT CHEST ABD PEL W CON INDICATIONS: weakness, hx of cancer, early satiety TECHNIQUE: After the administration of oral and intravenous contrast, axial sections acquired from the supraclavicular neck to the pubic symphysis. Coronal and sagittal reformats were performed. For radiation dose reduction, the following was used: automated exposure control, adjustment of mA and/or kV according to patient size. COMPARISON: [facility], CT, CT ANGIO CHEST, 01/03/2019, 9:30. FINDINGS: Image quality: Excellent. CHEST: Lower Neck: No enlarged lymph nodes. Thyroid: Normal where well seen Axillae: No enlarged lymph nodes. Chest Wall: Unremarkable. Lungs and Airways: No consolidation or suspicious nodules. Pleura: No pneumothorax or pleural effusions. Heart: Heart size is normal. No pericardial effusion. Thoracic Vessels: The aorta and pulmonary arteries demonstrate normal size. Mediastinum and Doris: No enlarged lymph nodes. Esophagus: No wall thickening. No hiatal hernia. ABDOMEN: Liver: Unremarkable. Incidental note is made of focal fatty infiltration at the anterior margin of the fissure for the falciform ligament, a common finding. Gallbladder: The gallbladder contains twila gallstones but there is no evidence of acute cholecystitis or biliary obstruction. Biliary ducts: Unremarkable. Pancreas: Unremarkable. Spleen: Unremarkable. Adrenal Glands: Unremarkable. Kidneys and Ureters: Unremarkable. Stomach and Bowel: Stomach, small bowel loops, and colon are unremarkable. Generalized colonic obstipation. Peritoneum: No abnormal intraperitoneal fluid. No free air. Ventral Wall: No hernia. Abdominal Nodes: No retroperitoneal or mesenteric adenopathy by size criteria. Vessels: Aorta and inferior vena cava are normal in size. PELVIS: Pelvic Organs: Unremarkable. Bladder: Unremarkable. Pelvic Nodes: No enlarged lymph nodes. Miscellaneous: No inguinal hernias are seen. Generalized colonic obstipation without evidence of intestinal obstruction or perforation. Bones: Unremarkable. IMPRESSION: No evidence of metastatic disease. Note is made of several peripherally calcified gallstones moderate in size within the gallbladder lumen but there is no evidence of acute cholecystitis or adjacent biliary distension. Note is made of generalized colonic obstipation, without obstructive mass as the underlying cause identified. Dictated by: Jake Stein M.D. on 10/09/2020 at 17:06 Approved by: Jake Stein M.D. on 10/09/2020 at 17:10
[2020-10-09] MEDS: SODIUM CHLORIDE 0.9% 1,000 ML 1000 ML IV (17:00)
== END 2020-10-09 18:34 | disposition home or self-care (01) ==
PROVIDERS: Emergency Provider Emergency Medicine; PCP Physician Assistant Medical
DX: G20 Parkinson's disease (principal); R42 Dizziness and giddiness; R53.1 Weakness; R41.82 Altered mental status, unspecified
CPT/HCPCS: 36415; 71260; 74177; 80053; 81003; 85025; 93005; 93010; 96360; 99284; Q9967

== ENCOUNTER → 2020-10-14 11:19 | Outpatient (CLI) | payer MEDICARE, SELFPAY ==
[2020-10-14 13:13] LABS: TSH w/ Reflex to FT4 2.11 uIU/mL (0.47-4.68)
== END ==
PROVIDERS: PCP Student in an Organized Health Care Education/Training Program; Referring Provider Student in an Organized Health Care Education/Training Program; Visit Provider Student in an Organized Health Care Education/Training Program
DX: R25.1 Tremor, unspecified (principal); I10 Essential (primary) hypertension; R63.4 Abnormal weight loss
CPT/HCPCS: 36415; 84443

== ENCOUNTER 2020-11-04 15:58 | Observation (INO) | payer MEDICARE, SELFPAY ==
[2020-11-04 16:13] VITALS: BP 168/88; PULSE 99; RESP 22; TEMP 37.1; O2SAT 96
[2020-11-04 17:43] LABS: Bacteria Urine None Seen; WBC Urine None Seen (0-5/HPF)
[2020-11-04 18:04] LABS: Amorphous Sediment Urine 2+; Calcium Oxalate Crystals Urine Occasional; Culture Indicated Urine Cult Not Indicated; Mucus Urine 1+ (Negative); RBC Urine 0-1/HPF (0-5/HPF); Uric Acid Crystals Urine Occasional
--- NOTE | 2020-11-04 18:14 | ED_ITS ---
HPI - Recheck/Abnormal Lab/Rx General Chief Complaint: Recheck/Abnormal Lab/Rx Stated Complaint: multiple issues Time Seen by Provider: 11/04/20 17:45 Source: patient and family Mode of arrival: Ambulatory History of Present Illness HPI narrative: 65-year-old woman with progressive neurologic symptoms initially noticed in August consisting of mostly neuromotor findings initially was seen in August with full medical workup including brain MR and CT that should show other alternative diagnoses. She has since seen neurology at [facility] and a neuro muscular movement specialist provisional diagnosis was a parkinsonian issue. A trial of Sinemet was initiated but was ineffective and has since been stopped. She has initiated care with Dr. Phelan with additional workup currently in place. She has persistent concerning symptoms including loss of appetite, 20 lb weight loss, continued neuro muscular movement issues that at this point are causing severe sleep deprivation for the last number of months for both her and her . Most recently she is noticing dysphagia symptoms with solid foods and the main reason prompting today's emergency room visit is the development of hallucinations. She is hallucinating mostly in the evening consisting of both visual hallucinations, she seeing 2 versions of her , increasing paranoia and disorientation all of which is worsening the sleep deprivation. She has been on a trial of clonazepam initially started at 0.5 increased to 1 mg that was ineffective and has been discontinued for the last 3 days. She is off all medications for the last 3 days. Related Data Home Medications Medication Instructions Recorded Confirmed cholecalciferol (vitamin D3) 50 50 mcg PO DAILY 07/27/20 11/04/20 mcg (2,000 unit) capsule cyanocobalamin (vitamin B-12) 100 2,500 mcg PO DAILY tab 10/15/20 11/04/20 mcg tablet Previous Rx's Medication Instructions Recorded diazepam 5 mg tablet 5 mg PO QAM PRN #30 tab 10/28/20 Allergies Allergy/AdvReac Type Severity Reaction Status Date / Time diphenhydramine Allergy Mild Verified 11/04/20 19:22 [From Benadryl] paclitaxel [From TAXOL] Allergy Mild Verified 11/04/20 19:22 lorazepam [From Ativan] Allergy Unknown Verified 11/04/20 19:22 adhesive AdvReac Unknown rash Verified 11/04/20 19:22 Review of Systems Review of Systems Narrative: Remainder of complete review of systems is otherwise unremarkable except for that included in the HPI. Patient History Medical History Arthritis, lumbar spine AYALA (dyspnea on exertion) Extrapyramidal movement disorder History of malignant neoplasm of lung (06/30/14) Neoplasm of uncertain behavior of skin PSVT (paroxysmal supraventricular tachycardia) Seborrhea capitis in adult Spondylosis Tubular adenoma of colon Family History Sister COPD (chronic obstructive pulmonary disease) Hypertension Father Congestive heart failure Hyperlipidemia Hypertension Bladder cancer Mother Alzheimer disease CAD (coronary artery disease) Hypertension Hyperlipidemia Social History household members: spouse Smoking Status: Never smoker alcohol intake: former during the past year weight has: increased > 10 lbs well-balanced diet: about half the time Smoking Status: Never smoker Substance Use Type: does not use Exam Narrative Exam Narrative: General: Frail, pale-appearing no acute distress. HEENT: Moist mucous membranes, normal sclera with reactive pupils, Respiratory: Lungs are clear to auscultation, no wheezing no rales no rhonchi. Full and symmetrical air movement Cardiac: Regular rate and rhythm no murmurs no bruits Abdomen: Soft, nontender, good bowel tones, no flank pain Skin: Warm and dry, no rashes Neurologic: Tremor bilaterally both upper and lower extremities. No significant cogwheeling or other neuromuscular rigidity. 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) Stat Complete Blood Count AUTO DIFF Stat Comprehensive Metabolic Panel Stat Acetaminophen (Acetaminophen 325 Mg Tablet) 650 mg PO Q6HR PRN PRN Reason: Fever/Mild Pain (1-3) Enoxaparin Sodium (Enoxaparin 40 Mg/0.4 Ml Syringe) 40 mg SUBCUT DAILY [facility] Sodium Chloride (Normal Saline 0.9%) 1,000 mls @ 100 mls/hr IV CONT JENNIFER Last Admin: 11/04/20 23:08 Dose: 100 mls/hr Documented by: YONIS Melatonin (Melatonin 3 Mg Tablet) 6 mg PO BEDTIME [facility] Last Admin: 11/05/20 00:00 Dose: Not Given Documented by: MADELYN Naloxone HCl (Naloxone 0.4 Mg/Ml Vial) 0.2 mg IV Q2MIN PRN PRN Reason: Opiate Reversal Discontinued Medications Quetiapine Fumarate (Quetiapine 25 Mg Tablet) 25 mg PO NOW ONE Stop: 11/04/20 19:46 Last Admin: 11/04/20 20:02 Dose: 25 mg Documented by: MEGGAN Vital Signs Vital signs: Vital Signs - 8 hr 11/04/20 19:16 Pulse Rate 81 Blood Pressure 159/83 H Pulse Oximetry 96 MDM - Recheck/Abnormal Lab/Rx Lab Data Result diagrams: 11/04/20 19:45 11/04/20 19:45 Labs: Lab Results 11/04/20 11/04/20 11/04/20 Range/Units 17:31 19:45 19:45 WBC 7.2 (4.5-11.0) X10^3/uL RBC 4.26 (4.0-5.2) X10^6/uL Hgb 13.3 (12.0-16.0) g/dL Hct 40.2 (36-46) % MCV 94.4 (80-100) fL MCH 31.1 (26-34) PG MCHC 33.0 (30-36) % RDW 13.9 (11.6-14.8) % Plt Count 338 (150-400) X10^3/uL Neut % (Auto) 74.1 (50-75) % Lymph % (Auto) 16.0 L (25-40) % [place] % (Auto) 8.8 (3-14) % Eos % (Auto) 0.7 L (2-4) % Baso % (Auto) 0.4 (0-2) % Neut # (Auto) 5400 (1167-1462) /uL Lymph # (Auto) 1200 (0400-8383) /uL [place] # (Auto) 600 (0-900) /uL Eos # (Auto) 0 (0-450) /uL Baso # (Auto) 0 (0-100) /uL Sodium 139 (137-145) mmol/L Potassium 3.6 (3.4-5.1) mmol/L Chloride 104 (98-107) mmol/L Carbon Dioxide 30 (22-32) mmol/L BUN 15 (7-17) mg/dL Creatinine 0.66 (0.52-1.04) mg/dL Estimated GFR > 60.0 (>60) mL/min BUN/Creatinine Ratio 22.7 H (6-22) Glucose 102 (80-110) mg/dL Hemoglobin A1c (4.0-6.0) % Calcium 9.9 (8.4-10.2) mg/dL Total Bilirubin 1.5 H (0.2-1.3) mg/dL AST 24 (14-36) IU/L ALT 17 (<35) IU/L Alkaline Phosphatase 46 (38-126) U/L Total Protein 6.3 (6.3-8.2) g/dL Albumin 3.9 (3.5-5.0) g/dL Globulin 2.4 (1.7-4.1) g/dL Albumin/Globulin Ratio 1.6 (1.0-2.8) Urine RBC 0-1/hpf (0-5/HPF) Urine WBC None seen (0-5/HPF) Calcium Oxalate Crystal Occasional H Uric Acid Crystals Occasional (None) Amorphous Sediment 2+ Urine Bacteria None seen (None) Urine Mucus 1+ H (Negative) Ur Culture Indicated? Cult not indicated SARS-CoV-2 (PCR) (Negative) 11/04/20 11/04/20 Range/Units 19:45 19:46 WBC (4.5-11.0) X10^3/uL RBC (4.0-5.2) X10^6/uL Hgb (12.0-16.0) g/dL Hct (36-46) % MCV (80-100) fL MCH (26-34) PG MCHC (30-36) % RDW (11.6-14.8) % Plt Count (150-400) X10^3/uL Neut % (Auto) (50-75) % Lymph % (Auto) (25-40) % [place] % (Auto) (3-14) % Eos % (Auto) (2-4) % Baso % (Auto) (0-2) % Neut # (Auto) (1371-3077) /uL Lymph # (Auto) (6065-5877) /uL [place] # (Auto) (0-900) /uL Eos # (Auto) (0-450) /uL Baso # (Auto) (0-100) /uL Sodium (137-145) mmol/L Potassium (3.4-5.1) mmol/L Chloride (98-107) mmol/L Carbon Dioxide (22-32) mmol/L BUN (7-17) mg/dL Creatinine (0.52-1.04) mg/dL Estimated GFR (>60) mL/min BUN/Creatinine Ratio (6-22) Glucose (80-110) mg/dL Hemoglobin A1c 5.6 (4.0-6.0) % Calcium (8.4-10.2) mg/dL Total Bilirubin (0.2-1.3) mg/dL AST (14-36) IU/L ALT (<35) IU/L Alkaline Phosphatase (38-126) U/L Total Protein (6.3-8.2) g/dL Albumin (3.5-5.0) g/dL Globulin (1.7-4.1) g/dL Albumin/Globulin Ratio (1.0-2.8) Urine RBC (0-5/HPF) Urine WBC (0-5/HPF) Calcium Oxalate Crystal Uric Acid Crystals (None) Amorphous Sediment Urine Bacteria (None) Urine Mucus (Negative) Ur Culture Indicated? SARS-CoV-2 (PCR) Negative (Negative) Urine Dip Bedside Urine Glucose Negative Bedside Urine Bilirubin - Negative Bedside Urine Ketone + 15 Urine Specific [place] 1.030 Bedside Urine Occult Blood + Bedside Urine pH 6.0 Bedside Urine Protein - Negative Bedside Urine Urobilinogen +/- 1mg Bedside Urine Nitrite - Negative Bedside Urine Leukocytes - Negative Esterase MDM Narrative Medical decision making narrative: 65-year-old woman with continued tremor in non diagnostic exam with persistent weight loss, loss of appetite and now with increasing dysphagia with solid foods. Head is currently off of all medications and having severe insomnia due to neuromuscular tremor. Now beginning to have v isual hallucinations with increasing paranoia. Have recommended hospitalization for trial of Seroquel to help with more rapid dosing and allow for improved sleep. She also will benefit from more urgent swallow evaluations hopefully can be done as an inpatient and hopefully will be able to have a inpatient psychiatric consultation regarding the developing hallucinations and paranoia in terms of medical management for discharge home. Lab workup is unremarkable there is no obvious infectious etiology having been off all medications for the last 3 weeks with minimal doses previously do not suspect overdose nor withdrawal syndromes to be contributing. She has already had neuro imaging and I do not believe this needs to be repeated at this time. In light of no improvement at all with Sinemet the possibility of other dementias syndromes is entertained including the possibility of Lewy body dementia in light of the developing visual hallucinations. Will try Seroquel and see if this has any effect with decreasing the hallucinations and helping with sleep to try and avoid hallucinations simply related to severe sleep deprivation. Care is reviewed with Margret Trujillo, hospitalist HERMILA. Observation admission is ranged. Discharge Plan Departure Patient Disposition: Admitted as Observation Clinical Impression: Hallucination, visual, Abnormal weight loss, Sleep deprivation, Appetite loss Dysphagia Qualifiers: Dysphagia type: unspecified Qualified Code(s): R13.10 - Dysphagia, unspecified Admit Date/Time: 11/04/20 19:46 Admit Provider: Margret Floyd
[2020-11-04 19:16] VITALS: BP 159/83; PULSE 81; O2SAT 96
[2020-11-04 19:50] LABS: Add Manual Diff / Slide Review NO; Basophils Absolute Auto 0 /uL (0-100); Basophils Percent Auto 0.4 % (0-2); Eosinophils Absolute Auto 0 /uL (0-450); Eosinophils Percent Auto 0.7 % (2-4); Hematocrit 40.2 % (36-46); Hemoglobin 13.3 g/dL (12.0-16.0); Lymphocytes Absolute Auto 1200 /uL (1100-4500); Mean Corpuscular Hemoglobin 31.1 PG (26-34); Mean Corpuscular Volume 94.4 fL (80-100); Monocytes Absolute Auto 600 /uL (0-900); Monocytes Percent Auto 8.8 % (3-14); Neutrophils Absolute Auto 5400 /uL (1500-7000); Neutrophils Percent Auto 74.1 % (50-75); Platelet Count 338 X10^3/uL (150-400); Red Blood Cell Count 4.26 X10^6/uL (4.0-5.2); Red Cell Distribution Width 13.9 % (11.6-14.8); White Blood Cell Count 7.2 X10^3/uL (4.5-11.0)
[2020-11-04] MEDS: QUETIAPINE 25 MG TABLET PO (20:02)
[2020-11-04 20:09] LABS: Alanine Aminotransferase 17 IU/L (<35); Albumin 3.9 g/dL (3.5-5.0); Albumin Globulin Ratio 1.6 (1.0-2.8); Alkaline Phosphatase 46 U/L (38-126); Aspartate Aminotransferase 24 IU/L (14-36); BUN Creatinine Ratio 22.7 (6-22); Bilirubin Total 1.5 mg/dL (0.2-1.3); Blood Urea Nitrogen 15 mg/dL (7-17); Calcium 9.9 mg/dL (8.4-10.2); Carbon Dioxide 30 mmol/L (22-32); Chloride 104 mmol/L (98-107); Estimated Glomerular Filt Rate > 60.0 mL/min (>60); Globulin 2.4 g/dL (1.7-4.1); Glucose 102 mg/dL (80-110); HEMOLYSIS < 15 (0-50); Potassium 3.6 mmol/L (3.4-5.1); Sodium 139 mmol/L (137-145); Total Protein 6.3 g/dL (6.3-8.2)
[2020-11-04 21:01] LABS: COVID19 - ADMIT (NP swab/PCR) Negative (Negative)
[2020-11-04 21:13] VITALS: BP 155/82; PULSE 85; RESP 15; O2SAT 97
[2020-11-04 22:08] VITALS: BP 150/89; PULSE 86; RESP 16; TEMP 36.3; O2SAT 96
--- NOTE | 2020-11-04 22:45 | P.HP_ITS ---
History of Present Illness History of Present Illness Date Patient Seen: 11/04/20 Time Patient Seen: 22:00 Chief complaint: multiple issues Narrative: Young, dimitry Domenico Landin is a 65-year-old female brought in by her with multiple medical concerns specifically, loss of appetite, memory issues, tremoring and nocturnal leg movement, all of which have been going on for several months. Her most concerning symptom which brought her to the emergency department was new onset development of hallucinations within the past 3-4 days. Both the patient and her [place], have not been able to sleep essentially for months due to her continuous movements however the severity of her hallucinations are what brought them in seeking attention. She states a history of weight loss over the past several months of approximately 40 lb, states that she has reflux and wants to eat orally at night and that her often is not home to prepare their meals until closer to 730, she denies nausea vomiting, just no appetite. states that she has been getting up frequently at night to use the bathroom and has been perseverating about being constipated. She denies any urinary or bowel incontinence but wears a depends because she is concerned about having an accident. She endorses having tremors of her legs and arms and l recently has began to not recognize her particularly at night. They describe her hallucinations is seeing and picking at things on her skin in she stated that her was wearing something purple and not him. Emergency department has requested admission for this patient overnight to try to organized services for her and to trial Seroquel on her. She denies a mental health history on the part of either sides of her family. Patient is afebrile, blood pressure 150/89, heart rate 86, respiratory rate 16, oxygen saturation 96% on room air and she weighs 54.4 kg. CBC and chemistry is unremarkable with exception of a mildly elevated bilirubin at 1.5, the UA is negative for UTI, and COVID-19 PCR is negative. Review of outside medical records that were scanned into the chart indicated that the patient saw a movement specialist at [facility] who recommended some sort of dopamine scanning but wanted to hold off until the patient had been seen by her PCP due to her weight loss with concerns of either recurrence of malignancy or new malignancy. Her main concern is a progressively worsening dizziness, tremor, and weight loss that became apparent in June 2020. Records from the [facility] pre-dating this point only discuss age-related arthritis. History is notable for lung cancer treated in 2005 and a tubular adenoma of the colon removed 11/2013 of which are thought to be in complete remission. She was seen the ED in August 2020 describing a very stressful episode in Mid June that immediately preceded a change in gait, new tremors, rapid weight loss, anorexia. These complaints were confirmed on exam, but labs and CT + MRI of the brain were unremarkable. She was referred to neurology, who subsequently referred her to a movement specialist. Records from a telehealth visit with Dr. Mar area available and describe concern for a neurodegenerative disorder with associated dysautonomia, but conclusive diagnosis could not be made via telehealth. Clonazepam was recommended for non-motor symptoms and a brain scan of the dopamine transporters was recommended as a possible next study, but was not ordered until she had her medical issues cleared. She has lost about 40 pounds in the last 3 months. She has significant problems with sleep maintenance and describes taking clonazepam 0.25mg at bedtime, then again in 3-5 hours. She and her now believe that the clonazepam are more responsible for hallucinations which have worsened over the past 3 days. She has already been directed to counseling resources by her previous PCP. She is not certain how much she is eating at home, but thinks it is likely not enough and usually due to needing to eat earlier than her is able to supply her meals. Shec ontinues to have intrusive thoughts, but with worsening hallucinations. Patient History Medical History (Updated 11/04/20 @ 22:52 by HERMILA Yepez) Arthritis, lumbar spine AYALA (dyspnea on exertion) Extrapyramidal movement disorder History of malignant neoplasm of lung (06/30/14) Neoplasm of uncertain behavior of skin PSVT (paroxysmal supraventricular tachycardia) Seborrhea capitis in adult Spondylosis Tubular adenoma of colon Family & Social History Family History (Updated 11/04/20 @ 22:49 by HERMILA Yepez) Sister COPD (chronic obstructive pulmonary disease) Hypertension Father Congestive heart failure Hyperlipidemia Hypertension Bladder cancer Mother Alzheimer disease CAD (coronary artery disease) Hypertension Hyperlipidemia Tobacco & Substance use: Smoking Status Never smoker Substance Use Type does not use Alcohol use wine, not drank in past 5 years Meds Home Medications and Allergies Home Medications Medication Instructions Recorded Confirmed Type cholecalciferol (vitamin D3) 50 50 mcg PO DAILY 07/27/20 11/04/20 History mcg (2,000 unit) capsule cyanocobalamin (vitamin B-12) 100 2,500 mcg PO DAILY tab 10/15/20 11/04/20 History mcg tablet diazepam 5 mg tablet 5 mg PO QAM PRN #30 tab 10/28/20 11/04/20 Rx Allergies Allergy/AdvReac Type Severity Reaction Status Date / Time diphenhydramine Allergy Mild Verified 11/04/20 19:22 [From Benadryl] paclitaxel [From TAXOL] Allergy Mild Verified 11/04/20 19:22 lorazepam [From Ativan] Allergy Unknown Verified 11/04/20 19:22 adhesive AdvReac Unknown rash Verified 11/04/20 19:22 Review of Systems Review of Systems ROS: Yes All systems reviewed with the patient and are negative except as othe rwise documented Exam Vital Signs (past 8 hours): - 11/04/20 16:13 11/04/20 19:16 11/04/20 21:13 Temperature 98.8 F Pulse Rate 99 H 81 85 Respiratory Rate 22 15 Blood Pressure 168/88 H 159/83 H 155/82 H Pulse Oximetry 96 96 97 11/04/20 22:08 Temperature 97.4 F L Pulse Rate 86 Respiratory Rate 16 Blood Pressure 150/89 H Pulse Oximetry 96 Oxygen Delivery Method Room Air Narrative Exam Narrative: Gen: Alert, oriented, thin and ill appearing 65 y.o. female, very pleasant, mildly lethargic HEENT: normocephalic, atraumatic, conjunctiva clear, sclera non-icteric, oral mucosa pink and moist Neck: supple, full ROM, no JVD, trachea is midline Resp: Lungs CTA, non-labored breathing CV: RRR, no murmur or rubs Abd: soft, non-tender, normoactive BTs Skin: no lesions or rashes, dry and intact Neuro: Alert and oriented X 4 w/no focal deficits. Speech clear and coherent. Extremities: mild bilateral edema of the lower extremities, moves all 4 extremities, is ambulatory, negative Beatris?s sign Psyche: She is appropriate, normally animated with a normal mood and affect. Objective Labs Result Diagrams: 11/04/20 19:45 11/04/20 19:45 Labs: Laboratory Results - last 24 hr 11/04/20 11/04/20 11/04/20 17:31 19:45 19:45 WBC 7.2 RBC 4.26 Hgb 13.3 Hct 40.2 MCV 94.4 MCH 31.1 MCHC 33.0 RDW 13.9 Plt Count 338 Neut % (Auto) 74.1 Lymph % (Auto) 16.0 L [place] % (Auto) 8.8 Eos % (Auto) 0.7 L Baso % (Auto) 0.4 Neut # (Auto) 5400 Lymph # (Auto) 1200 [place] # (Auto) 600 Eos # (Auto) 0 Baso # (Auto) 0 Sodium 139 Potassium 3.6 Chloride 104 Carbon Dioxide 30 BUN 15 Creatinine 0.66 Estimated GFR > 60.0 BUN/Creatinine Ratio 22.7 H Glucose 102 Calcium 9.9 Total Bilirubin 1.5 H AST 24 ALT 17 Alkaline Phosphatase 46 Total Protein 6.3 Albumin 3.9 Globulin 2.4 Albumin/Globulin Ratio 1.6 Urine RBC 0-1/hpf Urine WBC None seen Calcium Oxalate Crystal Occasional H Uric Acid Crystals Occasional Amorphous Sediment 2+ Urine Bacteria None seen Urine Mucus 1+ H Ur Culture Indicated? Cult not indicated SARS-CoV-2 (PCR) 11/04/20 19:45 WBC RBC Hgb Hct MCV MCH MCHC RDW Plt Count Neut % (Auto) Lymph % (Auto) [place] % (Auto) Eos % (Auto) Baso % (Auto) Neut # (Auto) Lymph # (Auto) [place] # (Auto) Eos # (Auto) Baso # (Auto) Sodium Potassium Chloride Carbon Dioxide BUN Creatinine Estimated GFR BUN/Creatinine Ratio Glucose Calcium Total Bilirubin AST ALT Alkaline Phosphatase Total Protein Albumin Globulin Albumin/Globulin Ratio Urine RBC Urine WBC Calcium Oxalate Crystal Uric Acid Crystals Amorphous Sediment Urine Bacteria Urine Mucus Ur Culture Indicated? SARS-CoV-2 (PCR) Negative Assessment & Plan Assessment & Plan narrative: Young Landin will be observed overnight for further evaluation, mobilization of home resources and and discussion with neurology specialists on continuation of a workup of movement discorder, anorexia and now hallucinations. 1. Hallucinations, acute * Unknown if patient is actively hallucinating, consider Jaylan Bonnet syndrom * She was administered oral seroquel in the ED in hopes she would be sedated through the night * Review of neorologist's notes indicated preference not to prescribe antipsychotics or dopamine blockers * Consults requested on psychiatry and OT for cognitive evaluation 2. Sleep disturbance, acute * She is written for po melatonin 6 mg at bedtime to assist in her sleep wake cycle * She has previously had bad reactions to benadryl and lorazapam * Limit night time disruptions, but keep in an observable room 3. Movement disorder, chronic, but relatively new * PT eval tomorrow 4. Anorexia, chronic but new * Dietary consult * PCP recommended a minimum of 1800 calories/day 5. Stated polyurea * A1c pending VTE Prophylaxis: Wells risk score 0 Enoxaparin 40 mg subQ once daily Patient is placed into observation as her stay is not expected to exceed 2 midnights. FEN: IV fluids: Saline lock, diet: general, labs: CBC, C/BMP, liver enzymes, Mag, Consultants Dr. Nichols, psychiatry, care and involvement in the patient?s care is appreciated. Dispo: Unknown at this time Code status: Full Code as discussed with the patient who identifies spouse [place] Govea as her surrogate and POA. I have utilized all available immediate resources (patient, family member, internal and external medical records) to obtain, update, or review the patient?s current home medications. COVID-19 COVID-19 status: Negative Scores Wells' Criteria for PE Clinical signs and symptoms of DVT: No PE is #1 Dx or equally likely: No Heart rate > 100: No Immobilization at least 3 days or surg in previous 4 weeks: No History of PE or DVT: No Hemoptysis: No Malignancy w/Treatment within 6 months or palliative: No Wells' PE Score total: 0 Quality VTE Deep Vein Thrombosis/Pulmonary Embolism Present on Admission: No MIPS - DC The patient has current or prior documentation of left ventricular ejection fraction (LVEF) less than 40%, or moderate or severely depressed left ventricular systolic function.: No
[2020-11-04] MEDS: SODIUM CHLORIDE 0.9% 1,000 ML 100 ML IV (23:08)
[2020-11-04 23:34] LABS: Hemoglobin A1C% w Est Avg Glu 5.6 % (4.0-6.0)
--- NOTE | 2020-11-04 23:38 | PC.ADMIT ---
[email or web address] [facility] Admission Note: Patient admitted at 21:20, spouse present. Alert and confused to place, cooperative with care. Shown how to use call light. The patient,Young Govea,65 y/o, was given written information regarding hospital policies, unit procedures and contact persons. Bed alarm set. Follows commands appropriately. Patient's smoking status: Never smoker. Vital Signs - 8 hr 11/04/20 16:13 11/04/20 19:16 11/04/20 21:13 Temperature 98.8 F Pulse Rate 99 H 81 85 Respiratory Rate 22 15 Blood Pressure 168/88 H 159/83 H 155/82 H Pulse Oximetry 96 96 97 11/04/20 22:08 Temperature 97.4 F L Pulse Rate 86 Respiratory Rate 16 Blood Pressure 150/89 H Pulse Oximetry 96
[2020-11-05 03:14] VITALS: O2SAT 100
[2020-11-05 05:22] VITALS: BP 156/83; PULSE 79; RESP 18; TEMP 36.6; O2SAT 94
[2020-11-05 06:36] LABS: Add Manual Diff / Slide Review NO; Basophils Absolute Auto 0 /uL (0-100); Basophils Percent Auto 0.7 % (0-2); Eosinophils Absolute Auto 100 /uL (0-450); Eosinophils Percent Auto 1.4 % (2-4); Hematocrit 39.5 % (36-46); Hemoglobin 13.1 g/dL (12.0-16.0); Lymphocytes Absolute Auto 1200 /uL (1100-4500); Lymphocytes Percent Auto 19.7 % (25-40); Mean Corpuscular HGB Conc 33.2 % (30-36); Mean Corpuscular Hemoglobin 31.4 PG (26-34); Mean Corpuscular Volume 94.4 fL (80-100); Monocytes Absolute Auto 600 /uL (0-900); Monocytes Percent Auto 10.1 % (3-14); Neutrophils Absolute Auto 4200 /uL (1500-7000); Neutrophils Percent Auto 68.1 % (50-75); Platelet Count 320 X10^3/uL (150-400); Red Blood Cell Count 4.18 X10^6/uL (4.0-5.2); Red Cell Distribution Width 14.4 % (11.6-14.8); White Blood Cell Count 6.1 X10^3/uL (4.5-11.0)
[2020-11-05 06:51] LABS: BUN Creatinine Ratio 18.2 (6-22); Blood Urea Nitrogen 12 mg/dL (7-17); Calcium 9.5 mg/dL (8.4-10.2); Carbon Dioxide 31 mmol/L (22-32); Chloride 104 mmol/L (98-107); Estimated Glomerular Filt Rate > 60.0 mL/min (>60); Glucose 97 mg/dL (80-110); HEMOLYSIS < 15 (0-50); Potassium 3.6 mmol/L (3.4-5.1); Sodium 139 mmol/L (137-145)
[2020-11-05 07:00] VITALS: O2SAT 97
[2020-11-05 07:21] LABS: Thyroid Stimulating Hormone 1.69 uIU/mL (0.47-4.68)
--- NOTE | 2020-11-05 09:01 | P.CONS_ITS ---
History of Present Illness Consult details Date Patient Seen: 11/05/20 Time Patient Seen: 12:00 Chief complaint: Hallucinations and cognitive changes Requesting provider: Margret Floyd Narrative: REFERRAL INFORMATION This is the first psychiatric evaluation for this 65-year-old female referred by the inpatient [facility] team for evaluation of hallucinations in the context of cognitive issues. RECORDS REVIEW The patient?s referral documents, medical records and intake questionnaire were reviewed as part of this evaluation. CHIEF COMPLAINT ?Things have been moving fast.? HISTORY OF PRESENT ILLNESS The patient was initially seen alone for about 30 minutes and then later in the day interviewed with her present, with her permission. History was obtained from both. Attention is also directed to the H and P and excellent ER note which outlined similar history. Briefly summarize, the patient was well until about 2 or 3 years ago when she began to observe some mild cognitive difficulties. These were mostly difficulty with memory which caused her some concern because her mother of Alzheimer's disease several years ago. Other than her memory difficulties, things are generally stable until about 3-5 months ago when she began to have other symptoms. Both she and her report worsening sleep and fairly significant insomnia. In addition, she also began to have a decreased appetite and without dieting lost about 40 lb within this time frame. She is vague about other potential symptoms of depression stating that she did not particularly feel sad down or depressed, have decreased energy, experience anhedonia, or tomlin icidal ideation or thoughts of . She did report some difficulty concentrating and focusing but felt that this may have been more related to her cognitive difficulties otherwise. The patient began to notice difficulty with movement and tremor. She states that she and her noticed that she would walk without moving her arms and she had difficulty with a fairly significant tremor. At the end of August, They were referred to a neurologist at [facility] who observed symptoms of parkinsonism and initiated a trial of Sinemet. She took the medication for several weeks but did not find it particularly helpful so was discontinued. In the last couple of months since then, the patient has noted worsening of insomnia and both the patient and her observe, ?when Domenico does not sleep, no one sleeps. ? They were referred to a movement specialist at [facility] to do a possible dopamine transporter scan which is still pending, but he referred them back to their primary care to address the sleep issues before he would proceed any further. In the meantime, the patient reported than last several weeks she has begun to experience visual hallucinations. These take the form of subtle changes to real objects in the environment that the patient perceives differently. For example she may see a coat that is turned into a little girl. Or she may see a pattern in a blanket that turns into something. At 1 point in the last several days, she thought that her was actually a copy of himself. They had been treated with clonazepam by their primary care physician and the dose has been steadily increase in order to address anxiety and help the patient get some sleep. However, this too did not appear to be helpful, so they discontinued it and at 1 point finally decided to come into the emergency department which resulted in the current admission. The patient denied any symptoms of magda. The patient denied any symptoms of PTSD. The patient denied any symptoms of ADHD. The patient denied any suicidal or homicidal ideation, intent, or plan. PAST PSYCHIATRIC HISTORY - Diagnoses: None - Inpatient: None. - Outpatient: None. - Suicide Attempts: None. PREVIOUS PSYCHIATRIC MEDICATION TRIALS None CURRENT PSYCHOTROPIC MEDICATIONS Quetiapine 25 mg p.o. q.h.s. (given last night for sleep) Clonazepam 0.5 mg p.o. q.h.s. as needed anxiety for sleep FAMILY HISTORY - Maternal: History of possible Alzheimer's dementia - Paternal: None known - Siblings: None SUBSTANCE USE HISTORY - Tobacco: The patient does not smoke. - Alcohol: The patient does not drink. No history of abuse. - Drugs: The patient does not use drugs. DATA * Labs: * See below * RATING SCALES: * 11/05/2020: MOCA Meds Home Medications and Allergies Home Medications Medication Instructions Recorded Confirmed Type cholecalciferol (vitamin D3) 50 50 mcg PO DAILY 07/27/20 11/04/20 History mcg (2,000 unit) capsule cyanocobalamin (vitamin B-12) 100 2,500 mcg PO DAILY tab 10/15/20 11/04/20 History mcg tablet diazepam 5 mg tablet 5 mg PO QAM PRN #30 tab 10/28/20 11/04/20 Rx Allergies Allergy/AdvReac Type Severity Reaction Status Date / Time diphenhydramine Allergy Mild Verified 11/04/20 19:22 [From Benadryl] paclitaxel [From TAXOL] Allergy Mild Verified 11/04/20 19:22 lorazepam [From Ativan] Allergy Unknown Verified 11/04/20 19:22 adhesive AdvReac Unknown rash Verified 11/04/20 19:22 Review of Systems Review of Systems ROS: Yes All systems reviewed with the patient and are negative except as otherwise documented Exam Vital Signs (past 8 hours): - 11/05/20 03:14 11/05/20 05:22 Temperature 97.9 F Pulse Rate 79 Respiratory Rate 18 Blood Pressure 156/83 H Pulse Oximetry 100 94 Oxygen Delivery Method Room Air Oxygen Flow Rate 0 Narrative Exam Narrative: MENTAL STATUS EXAM * Appearance: Very slender female seen seated in a chair in her hospital room wearing [facility] who appears older than her stated age of 65. * Grooming: Slightly disheveled from being in hospital. * Behavior: Calm and cooperative with the evaluation * Gait: Not tested * Speech: Normal rate, volume, and glo * Mood: ?Exhausted and embarrassed? * Affect: Mildly dysphoric, but pleasant and cooperative. Congruent with content, normal range and reactivity * Thought Process: Linear, logical, and goal-directed * Thought Content: Denies suicidal ideation, denies homicidal ideation, intent or plan; and thee was no evidence of a formal thought or perceptual disturbance. * Attention: Attentive to interview * Orientation: Oriented to person, place, time, and circumstance * Memory: Poor MOCA * Insight: Fair * Judgment: Fair Objective Labs Result Diagrams: 11/05/20 06:10 11/05/20 06:10 Labs: Laboratory Results - last 24 hr 11/04/20 11/04/20 11/04/20 17:31 19:45 19:45 WBC 7.2 RBC 4.26 Hgb 13.3 Hct 40.2 MCV 94.4 MCH 31.1 MCHC 33.0 RDW 13.9 Plt Count 338 Neut % (Auto) 74.1 Lymph % (Auto) 16.0 L [place] % (Auto) 8.8 Eos % (Auto) 0.7 L Baso % (Auto) 0.4 Neut # (Auto) 5400 Lymph # (Auto) 1200 [place] # (Auto) 600 Eos # (Auto) 0 Baso # (Auto) 0 Sodium 139 Potassium 3.6 Chloride 104 Carbon Dioxide 30 BUN 15 Creatinine 0.66 Estimated GFR > 60.0 BUN/Creatinine Ratio 22.7 H Glucose 102 Hemoglobin A1c Calcium 9.9 Magnesium Total Bilirubin 1.5 H AST 24 ALT 17 Alkaline Phosphatase 46 Total Protein 6.3 Albumin 3.9 Globulin 2.4 Albumin/Globulin Ratio 1.6 TSH Urine RBC 0-1/hpf Urine WBC None seen Calcium Oxalate Crystal Occasional H Uric Acid Crystals Occasional Amorphous Sediment 2+ Urine Bacteria None seen Urine Mucus 1+ H Ur Culture Indicated? Cult not indicated SARS-CoV-2 (PCR) 11/04/20 11/04/20 11/05/20 19:45 19:46 06:10 WBC 6.1 RBC 4.18 Hgb 13.1 Hct 39.5 MCV 94.4 MCH 31.4 MCHC 33.2 RDW 14.4 Plt Count 320 Neut % (Auto) 68.1 Lymph % (Auto) 19.7 L [place] % (Auto) 10.1 Eos % (Auto) 1.4 L Baso % (Auto) 0.7 Neut # (Auto) 4200 Lymph # (Auto) 1200 [place] # (Auto) 600 Eos # (Auto) 100 Baso # (Auto) 0 Sodium Potassium Chloride Carbon Dioxide BUN Creatinine Estimated GFR BUN/Creatinine Ratio Glucose Hemoglobin A1c 5.6 Calcium Magnesium Total Bilirubin AST ALT Alkaline Phosphatase Total Protein Albumin Globulin Albumin/Globulin Ratio TSH Urine RBC Urine WBC Calcium Oxalate Crystal Uric Acid Crystals Amorphous Sediment Urine Bacteria Urine Mucus Ur Culture Indicated? SARS-CoV-2 (PCR) Negative 11/05/20 11/05/20 06:10 06:10 WBC RBC Hgb Hct MCV MCH MCHC RDW Plt Count Neut % (Auto) Lymph % (Auto) [place] % (Auto) Eos % (Auto) Baso % (Auto) Neut # (Auto) Lymph # (Auto) [place] # (Auto) Eos # (Auto) Baso # (Auto) Sodium 139 Potassium 3.6 Chloride 104 Carbon Dioxide 31 BUN 12 Creatinine 0.66 Estimated GFR > 60.0 BUN/Creatinine Ratio 18.2 Glucose 97 Hemoglobin A1c Calcium 9.5 Magnesium 2.0 Total Bilirubin AST ALT Alkaline Phosphatase Total Protein Albumin Globulin Albumin/Globulin Ratio TSH 1.69 Urine RBC Urine WBC Calcium Oxalate Crystal Uric Acid Crystals Amorphous Sediment Urine Bacteria Urine Mucus Ur Culture Indicated? SARS-CoV-2 (PCR) Assessment & Plan Assessment and plan (1) Lewy body disease: Status: Acute Assessment & Plan narrative: ASSESSMENT Young Govea is a 65-year-old female with no prior psychiatric history who presents with possible 1-2 year history of possible mild cognitive impairment that has worsened in the last several months with significant symptoms of probable Lewy body disease. Lewy body disease has four core clinical features including: Fluctuating attention and/or alertness; recurrent, typically well-formed and detailed, visual hallucinations; REM sleep behavior disorder; at least 1 spontaneous feature parkinsonism. The patient presents with at least 2 of these (hallucinations and parkinsonism) and is somewhat ambivalent regarding attention and recent complaints of insomnia may indicate sleep disorder. Weight loss and appetite changes may indicate apathy, autonomic dysfunction, or depression in the context of Lewy body dementia. DIAGNOSES Probable Lewy body disease Depression Mild anxiety RECOMMENDATIONS 1. Avoid antipsychotics in this patient due to possible hypersensitivity and reactivity to antipsychotic medications. 2. May use benzodiazepines however with great caution and judiciousness as they will likely worsen cognitive functioning. They may also cause difficulty with balance difficulties and subsequent falls. 3. Recommend returning to the neurologist they previously consulted at [facility] for further evaluation and treatment. 4. Recommend returning to [facility] for dopamine transporter scan which may already be in the process of being scheduled. 5. Recommend trial of cholinesterase inhibitor which may be helpful in slowing cognitive decline. 6. Recommend patient and consider planning for higher levels of care in the future. Time Spent With Patient Time with patient: Greater than 35 minutes
--- NOTE | 2020-11-05 10:55 | PT.IIE ---
Medical History (Last Reviewed 11/05/20 @ 02:24 by Nelda Chow MD) Arthritis, lumbar spine AYALA (dyspnea on exertion) Extrapyramidal movement disorder History of malignant neoplasm of lung (06/30/14) Neoplasm of uncertain behavior of skin PSVT (paroxysmal supraventricular tachycardia) Seborrhea capitis in adult Spondylosis Tubular adenoma of colon Physical Therapy Inpatient Evaluation/Re-Eval M1 PT/OT-IP Prior Functional Status Start: 11/05/20 12:28 Freq: NEEDED Status: Active Protocol: Document 11/05/20 10:55 AB (Rec: 11/05/20 13:07 AB [email or web address]) Medical Review Prior Functional Status Medical History Reviewed Yes Communication able to make needs known Mobility and Gait pt stated that she is independent with all mobilities and ambulation without AD; spouse stated that for the passed month pt tends to hold on to the wall/ furniture cruise when ambulating at home and needs assist for outdoor mobility Social History Household Members spouse Living Arrangements House Number of Floors (Floors) Two Floors Number of Stairs To Enter/Railing? has 7 steps R rail descending + 2 steps without rails to enter the house has 18 steps L rail ascending to get to 2nd level bedroom Home Environment Standard Height Toilet,Walk in Shower,Tub/Shower M2 PT-IP Current Condition Start: 11/05/20 12:28 Freq: NEEDED Status: Active Protocol: Document 11/05/20 10:55 AB (Rec: 11/05/20 13:07 AB [email or web address]) Physical Therapy Current Condition Current Condition Evaluation Date 11/05/20 Treatment Diagnosis movement d/o; difficulty in walking Onset Date 11/04/20 Precautions Other Precautions falls M3 PT-IP Subjective Start: 11/05/20 12:28 Freq: NEEDED Status: Active Protocol: Document 11/05/20 10:55 AB (Rec: 11/05/20 13:07 AB [email or web address]) Subjective Physical Therapy Visit Type Type Initial Evaluation Visit Start Time 10:55 Visit Stop Time 11:45 Total Visit Minutes 50 Number of LANDSCAPE [employer] Visits 0 Physical Therapy Visit Comments Patient Comments agreeable to do PT; stated that she cannot relax because she is being tested M4 PT-IP Mobility and Gait Start: 11/05/20 12:28 Freq: NEEDED Status: Active Protocol: Document 11/05/20 10:55 AB (Rec: 11/05/20 13:07 AB [id number]) PT-Bed Mobility Assessment Supine to Sit Supine to Sit Standby Assistance PT-Transfer Assessment Sit to and From Stand Sit to and from Stand Contact Guard Assistance,1 Person Assistance,Use of Upper Extremities Equipment Transfer Assistive Device None,Gait Belt,Front Wheeled Walker Orthotic/Prosthetic Devices or Brace: No Transfers Transfer Destination Chair,Toilet Transfer Technique ambulated Transfer Ability Level of Assist Contact Guard Assistance, Minimal Assistance,1 Person Assistance,Use of Upper Extremities Comments Mobility Comments (+) resting tremors. spouse in room with pt completed supine to sit SBA. CGA for sitting balance on EOB . completed sit to stand CGA and ambulated in room using FWW CGA ~ 20 ft. assessed ambulation without AD and completed 20 ft min A and cues . ataxic gait with decrease step width/length. RLE tends to cross over midlline, increase trunk guarding/ rigidity noted and assisted with weight shifting and stability. pt has difficulty following directions. pt agreed to stay up on chair and positioned. instructed to use call button to ask for assistance and agreed but unable to recall and pt tends to just stand up without asking for assistance when PT was about to leave. informed pt that she agreed to sit up on the chair and denied. stated that she cannot stay up on the chair. when asked if she wants to go back to bed instead pt also said not. but after a few seconds, stated that she has to use the toilet . pt completed sit to stand from chair CGA and ambulated to the toilet without AD min A and cues. completed toileting . ambulated from the toilet to the sink min A and CGA for standing balance while completing handwashing. assisted pt back to chair and positioned. chair alarm set up. call light and table placed within reach. pt again asked regarding sitting on chair and educated again. Left pt with spousei n room informed nurse regarding pt mobility and decrease safety awareness. Gait Assessment Gait Gait Assistance Required: Contact Guard Assist,Minimum Assistance Distance (Feet) 20 Able to Maintain Weight Bearing Status Yes During Gait Assistive Devices Assistive Device None,Gait Belt,Front Wheeled Walker Orthotic/Prosthetic Devices or Brace: No Gait Deviations General Gait Pattern Ataxic,Decreased Stride Length ,Decreased Feet Clearance, Festinating Factors Limiting Gait Function Factors Limiting Gait Function Decreased Activity Tolerance, Decreased Strength,Difficulty Following Directions,Poor Balance,Poor Safety Awareness PT-Balance Assessment Sitting Balance and Reactions Static Sitting Balance Ability Good Dynamic Sitting Balance Ability Fair Standing Balance and Reactions Static Standing Balance Ability Fair Dynamic Standing Balance Ability Poor Device Used without AD M5 PT-IP Objective Assessments Start: 11/05/20 12:28 Freq: NEEDED Status: Active Protocol: Document 11/05/20 10:55 AB (Rec: 11/05/20 13:07 AB [email or web address]) Orientation Orientation/Cognition Level of Alertness Alert Orientation Name Language Function Ability No Deficits Noted Safety Awareness Decreased Safety Awareness Memory Description Short Term Impaired Comments cognitive issues affecting safety awareness Gross Range of Motion Lower Extremity ROM Assessment Within Functional Limits Strength Lower Extremity Strength Hip 4-/5 Knee 4-/5 Coordination Assessment Gross Coordination Gross Coordination WNL Muscle Tone Muscle Tone WNL No Comments Muscle Tone Comments resting tremors trunk and UE M6 PT-IP Treatment Start: 11/05/20 12:28 Freq: NEEDED Status: Active Protocol: Document 11/05/20 10:55 AB (Rec: 11/05/20 13:07 AB [email or web address]) Physical Therapy Treatment Education Education Provided Safety M7 PT-IP Assessment and Plan Start: 11/05/20 12:28 Freq: NEEDED Status: Active Protocol: Document 11/05/20 10:55 AB (Rec: 11/05/20 13:07 AB [email or web address]) PT Summary Assessment and Plan Potential Rehabilitation Potential Fair Status of Condition at Evaluation Evolving Summary Impairments Pain,ROM,Strength,Balance, Coordination,Sensation,Tone, Cognition,Bed Mobility, Transfers,Gait,Activity Tolerance Assessment Summary pt requiring CGA to min A with mobility. recommending use of FWW at this time and spouse is aware and stated that he can borrow from the soroptomist. will continues PT to work on standing balance , ambulation training and stair training. spouse stated that he can assist pt at home and will conduct caregiver training when appropriate. pt will need HHPT vs outpt PT Goals Bed Mobility Goal Independent Transfer Goal Independent,Front Wheeled Walker Gait Goal Independent,Front Wheel Walker Gait Distance 250 Other Goals ambulation without AD 150 ft SBA up/down 2 steps without rails SBA; up/down 13 steps R rail ascending SBA Days to Meet Goals 5 Frequency of Treatment Frequency Of Treatment Once a Day Treatment Plan Physical Therapy Treatment Plan Bed Mobility Training,Transfer Training,Gait Training, Therapeutic Exercise,Balance Retraining,Discharge Planning, Hot or Cold Pack,Neuromuscular Re-ed,Coordination Retraining ,Manual Therapy Other Recommendations and Next Treatment ambulation, standing balance, Focus stair climbing Precautions Other Precautions falls Recommendations To Nursing Amount of Assist Needed 1 Person Assist Discharge Recommendations PT Discharge Recommendations Home with 24/ Assist Available,Home Health, Outpatient PT Transportation Needs at Discharge Private Vehicle
--- NOTE | 2020-11-05 12:57 | PM.DS.1 ---
History of Present Illness History of Present Illness Chief complaint: Hallucinations and cognitive changes Narrative: Al Floyd: Young, pronouced Domenico Landin is a 65-year-old female brought in by her with multiple medical concerns specifically, loss of appetite, memory issues, tremoring and nocturnal leg movement, all of which have been going on for several months. Her most concerning symptom which brought her to the emergency department was new onset development of hallucinations within the past 3-4 days. Both the patient and her [place], have not been able to sleep essentially for months due to her continuous movements however the severity of her hallucinations are what brought them in seeking attention. She states a history of weight loss over the past several months of approximately 40 lb, states that she has reflux and wants to eat orally at night and that her often is not home to prepare their meals until closer to 730, she denies nausea vomiting, just no appetite. states that she has been getting up frequently at night to use the bathroom and has been perseverating about being constipated. She denies any urinary or bowel incontinence but wears a depends because she is concerned about having an accident. She endorses having tremors of her legs and arms and l recently has began to not recognize her particularly at night. They describe her hallucinations is seeing and picking at things on her skin in she stated that her was wearing something purple and not him. Emergency department has requested admission for this patient overnight to try to organized services for her and to trial Seroquel on her. She denies a mental health history on the part of either sides of her family. Patient is afebrile, blood pressure 150/89, heart rate 86, respiratory rate 16, oxygen saturation 96% on room air and she weighs 54.4 kg. CBC and chemistry is unremarkable with exception of a mildly elevated bilirubin at 1.5, the UA is negative for UTI, and COVID-19 PCR is negative. Review of outside medical records that were scanned into the chart indicated that the patient saw a movement specialist at [facility] who recommended some sort of dopamine scanning but wanted to hold off until the patient had been seen by her PCP due to her weight loss with concerns of either recurrence of malignancy or new malignancy. Her main concern is a progressively worsening dizziness, tremor, and weight loss that became apparent in June 2020. Records from the [facility] pre-dating this point only discuss age-related arthritis. History is notable for lung cancer treated in 2005 and a tubular adenoma of the colon removed 11/2013 of which are thought to be in complete remission. She was seen the ED in August 2020 describing a very stressful episode in Mid June that immediately preceded a change in gait, new tremors, rapid weight loss, anorexia. These complaints were confirmed on exam, but labs and CT + MRI of the brain were unremarkable. She was referred to neurology, who subsequently referred her to a movement specialist. Records from a telehealth visit with Dr. Mar area available and describe concern for a neurodegenerative disorder with associated dysautonomia, but conclusive diagnosis could not be made via telehealth. Clonazepam was recommended for non-motor symptoms and a brain scan of the dopamine transporters was recommended as a possible next study, but was not ordered until she had her medical issues cleared. She has lost about 40 pounds in the last 3 months. She has significant problems with sleep maintenance and describes taking clonazepam 0.25mg at bedtime, then again in 3-5 hours. She and her now believe that the clonazepam are more responsible for hallucinations which have worsened over the past 3 days. She has already been directed to counseling resources by her previous PCP. She is not certain how much she is eating at home, but thinks it is likely not enough and usually due to needing to eat earlier than her is able to supply her meals. Shec ontinues to have intrusive thoughts, but with worsening hallucinations. Discharge Providers Provider Date of admission: 11/04/20 19:46 Discharge Date: 11/05/20 Primary care physician: New Min MD Consults: 11/04/20 23:10 Consult to Dietitian, Adult Routine Comment: Reason For Exam: 40 lb weight loss X 3 months Consult to Occupational Therapy Evaluate & Treat Comment: Cognitive evaluation Physician Instructions: Evaluate and treat 11/04/20 23:36 Consult to Dietitian, Adult Routine Comment: Reason For Exam: weight loss 11/05/20 08:25 Consult to Speech Therapy Evaluate & Treat Comment: Physician Instructions: Evaluate and treat 11/05/20 09:00 Consult to Physical Therapy Evaluate & Treat Comment: Movement disorder Physician Instructions: Evaluate and Treat Discharge provider: Aditya Young MD Summary Hospital Course Discharge Diagnosis: 1. Parkinsonism with hallucinations, sleep disturbance 2. Anorexia with severe protein calorie malnutrition and mild dysphagia Hospital Course: Please see detail H and P for complex prior history for patient. She was admitted due to worsening hallucinations and mild dysphagia. Her presentation is consistent with parkinsonism which she is being worked up for by a neurologist. She had a speech and swallow eval who did not change her diet. She was seen by psychiatry who noted a MOCA of 18/30 and symptoms possibly consistent with lewy body dementia. She was stable in the hospital. She was discharged on aricept to try to prevent further progression of her cognitive issues. She was given a low dose benzodiazepene to help with sleep. Antipsychotics were specifically avoided due to concern for worsening symptoms. She was encouraged to have follow up as quickly as possible with neurology and her PCP. She is planned to get a dopamine brain scan in the future ordered by her neurologist for further diagnostic workup. Exam Vital Signs (past 8 hours): Oxygen Delivery Method Room Air Oxygen Flow Rate 0 Narrative Exam Narrative: GEN: no acute distress, slender Resp: clear bilaterally CV: regular rate and rhythm with no murmurs Abd: soft, non-tender, normal bowel sounds Skin: no rashes Neuro: Alert and oriented, speech and movements slow Objective Labs Result Diagrams: 11/05/20 06:10 11/05/20 06:10 [facility] Medical History Arthritis, lumbar spine AYALA (dyspnea on exertion) Extrapyramidal movement disorder History of malignant neoplasm of lung (06/30/14) Neoplasm of uncertain behavior of skin PSVT (paroxysmal supraventricular tachycardia) Seborrhea capitis in adult Spondylosis Tubular adenoma of colon Family History Sister COPD (chronic obstructive pulmonary disease) Hypertension Father Congestive heart failure Hyperlipidemia Hypertension Bladder cancer Mother Alzheimer disease CAD (coronary artery disease) Hypertension Hyperlipidemia Social History household members: spouse Smoking Status: Never smoker alcohol intake: former during the past year weight has: increased > 10 lbs well-balanced diet: about half the time Discharge Plan Discharge Plan Patient Disposition: Home Provider Discharge Comment: Ms. Govea came in with progressively worsening neurologic symptoms including hallucinations. She is tremulous. She was seen by psychiatry who recommended a medication donezepil to try help control her symptoms. She can also try clonazepam at night to help sleep, but some people do not respond well to this medication. However, she should follow up as soon as possible with her PCP and especially her neurologist to help manage her neurologic symptoms. Discharge orders & Medications Prescriptions: New donepezil [Aricept] 5 mg tablet 5 mg PO DAILY Qty: 30 RF: 0 clonazepam 0.5 mg tablet 0.25 mg PO BEDTIME Qty: 10 RF: 0 Continued cyanocobalamin (vitamin B-12) 100 mcg tablet 2,500 mcg PO DAILY RF: 0 diazepam 5 mg tablet 5 mg PO QAM PRN (Reason: anxiety) Qty: 30 RF: 2 cholecalciferol (vitamin D3) 50 mcg (2,000 unit) capsule 50 mcg PO DAILY RF: 0 Follow up/Referrals: New Min MD [Primary Care Provider] - Diet/Activity/Treatments Diet: Regular Visit Report/Discharge Packet Instructions: Insomnia (Alternative Therapy), Insomnia, Lewy Body Disease Discharge Data Primary Care Provider: New Min Attending Provider: Margret Floyd VTE Deep Vein Thrombosis/Pulmonary Embolism Present on Admission: No MIPS - DC The patient has current or prior documentation of left ventricular ejection fraction (LVEF) less than 40%, or moderate or severely depressed left ventricular systolic function.: No
--- NOTE | 2020-11-05 13:30 | ST.IPCSEOM ---
Visit Care Team Role Provider Type New Min MD Primary Care Provider Physician Specialty: Internal Medicine Address: [address] [place] [address], [address], [place], [address] Email: [email or web address] Nelda Chow MD Emergency Provider Physician Referring Provider Specialty: Emergency Medicine Address: [address] [place] [address], [id number] Email: HERMILA Yepez Admit Provider Physician Attending Provider Specialty: Internal Medicine Address: [address] [place] [address], [address] Email: [email or web address] Past Medical History (Last Reviewed 11/05/20 @ 02:24 by Nelda Chow MD) Arthritis, lumbar spine (Medical) AYALA (dyspnea on exertion) (Medical) Extrapyramidal movement disorder (Medical) History of malignant neoplasm of lung (Medical 06/30/14) Lung cancer surgeries X 2 Neoplasm of uncertain behavior of skin (Medical) PSVT (paroxysmal supraventricular tachycardia) (Medical) Ablation Seborrhea capitis in adult (Medical) Spondylosis (Medical) Tubular adenoma of colon (Medical) Speech-Language Pathology Swallow Evaluation SLIP TENDER Clinical Swallow Evaluation Start: 11/05/20 11:30 Freq: Status: Active Protocol: Document 11/05/20 11:31 LNK (Rec: 11/05/20 11:40 LNK [id number]) Clinical Swallow Evaluation Session Time Visit Start Time 08:55 Visit Stop Time 09:20 Total Visit Minutes 25 Referral Reason for Referral pt reports difficulty with swallowing Setting Assessment Location Acute Care Visit Type Note Type Initial evaluation Patient Information Identification Type Name,Wristband History PER H&P: julia Vidal Domenico Landin is a 65-year- old female brought in by her with multiple medical concerns specifically, loss of appetite, memory issues, tremor and nocturnal leg movement, all of which have been going on for several months. Her most concerning symptom which brought her to the emergency department was new onset development of hallucinations within the past 3-4 days. Both the patient and her [place], have not been able to sleep essentially for months due to her continuous movements however the severity of her hallucinations are what brought them in seeking attention. She states a history of weight loss over the past several months of approximately 40 lb, states that she has reflux and wants to eat orally at night and that her often is not home to prepare their meals until closer to 730, she denies nausea vomiting, just no appetite. Subjective Observations Pt in bed in her room with at bedside. Reported by Patient Other Symptoms Difficulty swallowing pills, Difficulty swallowing solids Comment pt reported that one medication (pill) has been difficult to swallow. noted that pt has difficulty with some breads and meats such as steak. Current Diet Regular,Thin liquids Baseline Feeding Method Independent in self-feeding Objective Assessment Mental Status Alert,Responsive,Cooperative Oral Integrity WFL Dentition Within normal limits Lip Function Within normal limits Observation of Lips at Rest Symmetrical Pucker Within normal limits Lip Retraction Within normal limits Tongue Function Within normal limits Tongue Protrusion Within normal limits Tongue Lateralization Within normal limits Hard/Soft Palate Function Within normal limits Observations of Hard/Soft Palate Within normal limits Comment OME was determined to be WNL Diadichokinesis was also WNL. Food and Liquid Trials Position During Assessment Slightly reclined Liquids Trialed Thin Solids Trialed Regular Administration Type Tea spoon,Straw,Self-feeding Oral Impairment Within normal limits Oral Phase Comments No oral residue observed. Good rotary chew for mastication. No difficulty with trialed foods (fruit, Citizen [place] toast) Pharyngeal Impairment Mildly impaired Pharyngeal Phase Comments Hyolaryngeal elevation WFL per palpation. Pt demonstrated prompt swallow response without cough/choke. Per pt, she has difficulty with swallowing one medication, describing the pill as sticking all the way down. Suggested they use a carrier sucha as applesauce or pudding to ease the swallowing of pills. No wet voicing was observed, no overt s/sx aspiration noted. Fatigue/Endurance Mild fatigue Comment Pt and her both noted that she is currently eating a softer, easier to swallow diet. She is aware of the foods she can and cannot eat. Her reported that he has been cooking a softer diet , avoiding foods like steak. Findings Swallowing Function Within normal limits Prognosis Fair Based on Cognitive status,Family support Recommendations Instrumental Assessment No Swallowing Treatment No Recommended Solids Regular Recommended Liquids Thin Safety Precautions/Swallowing Small bites and sips when Recommendations eating,Slow rate; swallow between bites Medication Recommendations As Tolerated,Whole in Carrier Comments Home with assistance 10/10 Education Patient/Caregiver Education Described results of evaluation,Patient expressed understanding of evaluation, Family/caregivers expressed understanding of evaluation, Patient expressed understanding of safety precautions,Family/caregivers expressed understanding of safety precautions
--- NOTE | 2020-11-05 14:00 | OT.IP.EVAL ---
Past Medical History (Last Reviewed 11/05/20 @ 02:24 by Nelda Chow MD) Arthritis, lumbar spine AYALA (dyspnea on exertion) Extrapyramidal movement disorder History of malignant neoplasm of lung (06/30/14) Neoplasm of uncertain behavior of skin PSVT (paroxysmal supraventricular tachycardia) Seborrhea capitis in adult Spondylosis Tubular adenoma of colon Occupational Therapy Inpatient Evaluation/Re-Eval M1 PT/OT-IP Prior Functional Status Start: 11/05/20 12:28 Freq: NEEDED Status: Active Protocol: Document 11/05/20 13:15 [facility] (Rec: 11/05/20 14:41 [facility] [id number]) Medical Review Prior Functional Status Medical History Reviewed Yes Communication able to make needs known Mobility and Gait pt stated that she is independent with all mobilities and ambulation without AD; spouse stated that for the passed month pt tends to hold on to the wall/ furniture cruise when ambulating at home and needs assist for outdoor mobility Activities of Daily Living and IADL's Pt states has been able to do most ADL's and just needing assist to help get into and out of the shower. Pt's has just taken over doing the bills 2 months ago. Social History Household Members spouse Living Arrangements House Number of Floors (Floors) Two Floors Number of Stairs To Enter/Railing? has 7 steps R rail descending + 2 steps without rails to enter the house has 18 steps L rail ascending to get to 2nd level bedroom Home Environment Standard Height Toilet,Walk in Shower,Tub/Shower M2 OT-IP Current Condition Start: 11/05/20 14:26 Freq: Status: Active Protocol: Document 11/05/20 13:15 [facility] (Rec: 11/05/20 14:41 [facility] [id number]) Occupational Therapy Current Condition Current Condition Evaluation Date 11/05/20 Treatment Diagnosis Movement disorder, decreased mobility Diagnosis Onset Date 11/04/20 M3 OT- IP Subjective and Pain Start: 11/05/20 14:26 Freq: Status: Active Protocol: Document 11/05/20 13:15 [facility] (Rec: 11/05/20 14:41 [facility] [id number]) OT- Subjective Occupational Therapy Visit Type Type Initial Evaluation Visit Start Time 13:00 Visit Stop Time 14:20 Total Visit Minutes 80 Occupational Therapy Visit Comments Patient Comments Pt wanting to get up to use the bathroom. Pt's present for caregiver training . Patient/Caregiver Goals To go home. OT Pain Assessment Pain When Pain Assessed At Rest Pain Present Pain Present Denied Pain M4 OT- IP ADL's Start: 11/05/20 14:26 Freq: Status: Active Protocol: Document 11/05/20 13:15 [facility] (Rec: 11/05/20 14:41 [facility] [id number]) OT [id number] Comments OT Self-Feeding Comments NOt at meal time. OT ADL-Grooming General Evaluation Grooming Ability Standby Assistance Comments OT Grooming Comments set-up assist OT ADL-Oral Care General Eval Oral Care Ability Independent OT ADL-Dressing General Eval Lower Body Dressing Ability Contact Guard Assistance Comments OT Dressing Comments CGA to help get brief up in back. VC to sit in order to don her brief. Pt's aware to provide assist as needed as pt tends to be impulsive. OT ADL-Toileting General Evaluation Toileting Ability Contact Guard Assistance Areas Needing Assistance Manage Clothing,Perform Perineal Hygiene Comments OT Toileting Comments Assist to pull up brief. Pt having to use the toilet x6 as trying to have a bowel movement. OT ADL-Bathing Comments OT Bathing Comments Suggested would be beneficial to have shower chair versus tub bench to use and also hand held shower spray. M5 OT- IP IADL's Start: 11/05/20 14:26 Freq: Status: Active Protocol: Document 11/05/20 13:15 [facility] (Rec: 11/05/20 14:41 [facility] [id number]) OT-Instrumental Activities of Daily Living Home Safety Awareness Home Safety Comments Pt's aware that he will now be providing supervision and assist as needed. Money Management Money Management Caregiver Provides Assistance Meal Preparation Meal Preparation Caregiver Provides Assist Signal Tower Operator Signal Tower Operator Caregiver Provides Assist Driving Driving Caregiver Provides Assist M6 OT- IP Functional Cognition Start: 11/05/20 14:26 Freq: Status: Active Protocol: Document 11/05/20 13:15 [facility] (Rec: 11/05/20 14:41 [facility] [id number]) Cognitive Factors Limiting Selfcare Function Cognitive Ability Level of Alertness Alert Patient Orientation Name,Place,Situation Attention Span Ability Capable of Focused Attention, Capable of Sustained Attention Ability to Follow Commands Able to Follow One Step Commands Safety Awareness Underestimates Need for Assistance Problem Solving Ability Needs Assist to Identify Solutions Executive Function Ability Unable to Filter Distractions, Unable to Organize Plans Cognitive Comments Cognitive Assessment Comments Pt a bit impulsive and decreased insight for safety awareness at this time. OT- Vision and Hearing OT- Hearing Assessment OT- Hearing Assessment WFL OT- Vision Assessment Visual Acuity Glasses All The Time Vision Assessment Comments Pt bumping into object on the right side. Pt feel that the FWW does not steer well. Would be beneficial to try 4WW. UNable to formally assess pt' s vision at this time. Pt states does need to get new glasses as not seeing well. M7 OT- IP Mobility and Balance Start: 11/05/20 14:26 Freq: Status: Active Protocol: Document 11/05/20 13:15 [facility] (Rec: 11/05/20 14:41 [facility] [id number]) OT-Transfer Assessment Sit to and From Stand Sit to and from Stand Contact Guard Assistance Transfers Transfer Ability Standby Assistance,Contact Guard Assistance Technique Transfer Destination Chair,Toilet Transfer Technique Stand Step Pivot Devices Transfer Assistive Devices Gait Belt,Front Wheeled Walker Comments Mobility Comments Pt needing from OT- Gait Assessment Comments Gait Ability Comments CGA with FWW, pt needing more assist to tight spaces to be able to move the FWW. Pt able to take steps without the FWW with CYNTHIA and use of gait belt from her . OT- Balance Assessment Sitting Balance and Reactions Static Sitting Balance Ability Normal Dynamic Sitting Balance Ability Good Standing Balance and Reactions Static Standing Balance Ability Fair Dynamic Standing Balance Ability Poor M8 OT- IP Objective Assessments Start: 11/05/20 14:26 Freq: Status: Active Protocol: Document 11/05/20 13:15 [facility] (Rec: 11/05/20 14:41 [facility] [id number]) OT Strength Comments Strength Comments Pt able to functionally use her arms for toileting needs at this time. Noted tremors in her BUE. M9 OT- IP Assessment and Plan Start: 11/05/20 14:26 Freq: Status: Active Protocol: Document 11/05/20 13:15 [facility] (Rec: 11/05/20 14:41 [facility] [id number]) OT Summary Assessment and Plan Potential Rehabilitation Potential Fair Analytic Complexity at Evaluation Moderate Summary OT Impairments Balance,Coordination, Functional Cognition, Functional Mobility,Self- Feeding,Grooming,Dressing, Toileting,Bathing,Toilet Transfers,Shower Transfers, Activity Tolerance Progress Towards Goals Slow Progress due to Medical Issues Assessment Summary Pt MOD complexity and main barriers are steps, impulsivity, decreased problem solving and needing vc for completeness and safety for ADl needs. Pt's trained how to diana/doff the gait belt and how to provide assist as needed. Spoke at length with her regarding having routines, and getting assist from others to assist with needs . Pt considering moving to assisted living. Goals Self-Feeding Goal Independent Grooming Goal Independent Dressing Goal Standby Assistance Toileting Goal Standby Assistance Bathing Goal Standby Assistance Toilet Transfer Goal Standby Assistance Shower Transfer Goal Standby Assistance Patient/Caregiver Education Goal Caregiver Independent Assisting Patient Days to Meet Goals 5 Frequency of Treatment Frequency Of Treatment Once a Day Treatment Plan OT Treatment Plan ADL Training,Functional Cognition Training,Functional Mobility,Vision Retraining, Patient/Family Education Other Treatment Recommendations and Next shower if still here and to Treatment Focus try 4ww Discharge Recommendations OT Discharge Recommendations Home with 24/7 Assist Available,Home Health, Outpatient PT Home Equipment Needs tub bench versus shower chair, hand held shower spray Transportation Needs at Discharge Private Vehicle
[2020-11-05 15:00] VITALS: O2SAT 98
--- NOTE | 2020-11-05 15:54 | CM.IDA ---
Addendum entered by MAYI Garza 11/06/20 09:05: DC home yesterday evening 11.05.20 w/spouse. This INVESTMENT FUND MANAGER unable to discuss DCP options w/patient's spouse before this departure. Original Note: Initial DCP Assessment Note Pt is a 65 yo female, resident of [facility], arrives w/recent development of hallucinations among onset of increasing neurologic symptoms since August of this year. Very thorough history outlined in ER note, H+P and Consult note from Dr Nichols. PCP: New Min Payer: Letty BERGER [facility] Reviewed chart, pt being seen by PT/OT/CLOSING AGENT and Dr Nichols, psychiatry, for consult today. This INVESTMENT FUND MANAGER unable to complete initial assessment in person. Therapies are recommending home w/ HH. Medical team suspects patient has a progressing Lewey Body Dementia. Home w/spouse and [facility] (the HH agency that serves [facility]) expected. Need to review DCP w/patient and spouse, also need to discuss termite exterminator care planning w/spouse if patient in fact has a progressing early dementia. MAYI Garza Discharge Planning/Care Management CM Discharge Assessment Start: 11/05/20 15:49 Freq: Status: Active Protocol: Document 11/05/20 15:50 YAMILEX (Rec: 11/05/20 15:54 YAMILEX [id number]) Discharge Planning Assessment Assigned [employer] MAYI Huynh DPOA/Assigned Designee Name Raleigh Govea, spouse Contact Information [phone] Advance Directives? Yes Advance Directives on File No History Provided By Medical Record Prior Living Arrangements House Household Members spouse Type of transporation used prior to Relies on Others admit Independent with ADL's Yes: Furniture cruises, needs assist w/outdoor ambulation Is patient alert and oriented? No: Increased confusion and hallucinations Needs Assistance With Grooming,Meal Prep,Managing Medications,Home Chores / Shopping Comment Increased care needs recently Barriers to Discharge No Comment Likely home w/spouse, today or tomorrow Discharge Plan Home Transportation Arrangement Family Additional Comment Will need HH referral before DC, [facility] provides HH services to [facility]
--- NOTE | 2020-11-05 17:10 | DIET.PN ---
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 Met c pt and spouse at bedside. Pt walking around room and bathroom during conversation with spouse attentive to pts location for safety. Pt has lost 16% of body weight unintentionally in past 3 mo (severe acute malnutrition) likely secondary to increased caloric expenditure from increased motor activity and decreased oral intake secondary to sx of gastric reflux. Pts spouse describes her recently as the Energizer nallely. After pts recent visit c Dr. Min, pt has been drinking one Ensure daily, a spoonful of good olive oil, bowl of ice cream, and both have been more mindful of the calorie levels of food (something they had never paid much attention to previously). Pts spouse feels a barrier to good PO is pts difficulty swallowing secondary to hard or dry meats and undercooked veggies. HT: 165.1cm WT: 54.4kg (-16% in 3 mo, severe) UBW: 65kg BMI: 20.0 (low for age) Nutrition Diagnosis: Severe Acute Protein Calorie Malnutrition r/t increased energy expenditure and decreased oral intake aeb 16% unintentional weight loss in 3mo (severe), BMI 20.0 (low for age), pts PO intake meeting <50% EER, pt with likely dx lewy body dementia. Interventions: 1. Provided ONS education with reccs for Ensure Enlive or Ensure Plus to better support pts nutrition status. Provided coupons. 2. Educated pt and spouse on high kcal, high PRO anti-inflammatory foods following Mediterranean style eating pattern for cognitive support. Encouraged intake olive and avocado oils, avocado, nut and seed butters, lentils, coconut milk on rice or in beans. Pt and spouse enjoy these foods and will incorporate more intentionally into their meal planning. 3. Encouraged pts spouse to have finger foods, mini meals or tapas around the home for pt to snack on throughout the day. 4. Reiterated Speech Teams reccs for ease of swallowing. Recc using chicken thighs instead of breast, over cooking beans and veggies, serving all foods in a broth or sauce. Diet Order: General EER:1800 kcals, 70g PRO
[2020-11-05 17:26] VITALS: BP 151/97; PULSE 103; RESP 18; O2SAT 98
--- NOTE | 2020-11-05 18:33 | PC.NURSE ---
Evening Shift/Discharge Note- Patient discharged home. Discharge.instructions and education reviewed with patiet and spouse and signed. IV line removed and bandage applied. Patient dressed self and spouse packed up personal belongings. Steve left via wheelchair to private car with all personal belongings at 1750.
== END 2020-11-05 17:50 | disposition home or self-care (01) ==
LOC: ED 18:04 → AC 19:47
PROVIDERS: Emergency Medicine; Admitting Provider Nurse Practitioner Family; Emergency Provider Emergency Medicine; PCP Student in an Organized Health Care Education/Training Program; Referring Provider Emergency Medicine; Visit Provider Nurse Practitioner Family
DX: G25.89 Other specified extrapyramidal and movement disorders (principal); R13.10 Dysphagia, unspecified; R63.0 Anorexia; E43 Unspecified severe protein-calorie malnutrition; G47.00 Insomnia, unspecified; R44.3 Hallucinations, unspecified; Z20.822 Contact with and (suspected) exposure to COVID-19
CPT/HCPCS: 36415; 80048; 80053; 81003; 81015; 83036; 83735; 84443; 85025; 87635; 92610; 96360; 96361; 97162; 97166; 97530; 97535; 99284; C9803; G0378

== ENCOUNTER 2023-03-05 16:29 | Emergency (ER) | payer MEDICARE, SELFPAY ==
[2023-03-05] VITALS (7 sets, daily range): BP systolic 137–192; BP diastolic 76–94; PULSE 70–88; RESP 16–19; TEMP 36.6; O2SAT 97–98; BMI 18.6
--- NOTE | 2023-03-05 17:10 | DI.RAD.S_ITS ---
PROCEDURE: XR CHEST 1V INDICATIONS: chest pain TECHNIQUE: One view of the chest was acquired. COMPARISON: Merged With [facility], CT, CT CHEST ABD PEL W CON, 10/09/2020, 16:42. Merged With [facility], CR, XR CHEST 2V, 09/03/2020, 17:27. FINDINGS: Surgical changes and devices: Prior right partial pneumonectomy change can be seen, with staple lines involving the right lung apex. Lungs and pleura: Lungs are clear. No pleural effusions or pneumothorax. There is elevation of the right hemidiaphragm. Mediastinum: Mediastinal contours appear normal. Heart size is normal. There is a prominent right pericardial fat pad. Bones and chest wall: No suspicious bony lesions. Age-appropriate bony degenerative changes are seen. Overlying soft tissues appear unremarkable. IMPRESSION: No acute cardiopulmonary abnormality is seen. Postoperative change can be seen, with partial right pneumonectomy. Dictated by: Jose Cruz Boykin M.D. on 03/05/2023 at 17:28 Approved by: Jose Cruz Boykin M.D. on 03/05/2023 at 17:30
[2023-03-05 17:35] LABS: Prothrombin Time 11.6 SECONDS (9.4-12.5)
[2023-03-05 17:38] LABS: PTT Partial Thromboplastin Tim 32 SECONDS (25.1-36.5)
[2023-03-05 17:40] LABS: Alanine Aminotransferase 28 IU/L (<35); Albumin 4.2 g/dL (3.5-5.0); Albumin Globulin Ratio 1.3 (1.0-2.8); Alkaline Phosphatase 68 U/L (38-126); Aspartate Aminotransferase 29 IU/L (14-36); BUN Creatinine Ratio 29.9 (6-22); Blood Urea Nitrogen 20 mg/dL (7-17); Calcium 10.1 mg/dL (8.4-10.2); Carbon Dioxide 25 mmol/L (22-32); Chloride 105 mmol/L (98-107); Creatine Kinase 24 U/L (30-135); Estimated Glomerular Filt Rate > 60 mL/min (>60); Globulin 3.3 g/dL (1.7-4.1); Glucose 106 mg/dL (80-110); HEMOLYSIS 25 (0-50); Lipase 129 U/L (23-300); Magnesium 2.1 mg/dL (1.6-2.3); Sodium 140 mmol/L (137-145); Total Protein 7.5 g/dL (6.3-8.2)
[2023-03-05 17:51] LABS: Troponin I < 0.012 ng/mL (0.01-0.034)
[2023-03-05 17:54] LABS: Add Manual Diff / Slide Review NO; Basophils Absolute Auto 100 /uL (0-100); Basophils Percent Auto 0.7 % (0-2); Eosinophils Absolute Auto 100 /uL (0-450); Eosinophils Percent Auto 1.5 % (2-4); Hematocrit 44.3 % (36-46); Hemoglobin 15.1 g/dL (12.0-16.0); Lymphocytes Absolute Auto 1500 /uL (1100-4500); Lymphocytes Percent Auto 18.4 % (25-40); Mean Corpuscular HGB Conc 34.1 % (30-36); Mean Corpuscular Volume 93.7 fL (80-100); Monocytes Absolute Auto 700 /uL (0-900); Neutrophils Absolute Auto 5900 /uL (1500-7000); Neutrophils Percent Auto 71.4 % (50-75); Platelet Count 391 X10^3/uL (150-400); Red Blood Cell Count 4.73 X10^6/uL (4.0-5.2); Red Cell Distribution Width 13.5 % (11.6-14.8); White Blood Cell Count 8.2 X10^3/uL (4.5-11.0)
--- NOTE | 2023-03-05 18:56 | ED_ITS ---
HPI - General Adult General Chief complaint: Weakness Stated complaint: weakness more asha usual/ brain foggy/ Constipation Time Seen by Provider: 03/05/23 18:07 Source: patient and family Mode of arrival: Wheelchair History of Present Illness HPI narrative: 67-year-old woman with likely Parkinson's disease or at least parkinsonian type symptoms last interaction with the allopathic medical care service was in October of 2020 when she is admitted to the hospital with multiple medical concerns. She had lost a significant amount of weight, previous records been reviewed prior evaluations by neurologists had felt that she had Parkinson's disease and would benefit from dopaminergic agent. She was discharged from the hospital with prescriptions for benazepril, 0.5 mg of clonazepam as needed diazepam and instructions to follow up with her PCP and neurologist. She and her have chosen not to continue with any follow-up and today's visit is 1st time they have seen a doctor since discharge. They live on [facility] and follow the tendons of [facility]. Her has been remarkably attentive and intends to continue this level of care. They both report that for her muscle spasms and pain he will typically massage her limbs. They have not used any medications of any kind. Her rigidity, spasm, overall discomfort as well as cognitive cloudiness have progressed. She was having enough pain in her limbs that she actually requested a medication which was administered in the form of a single Tylenol which offered minimal relief. She requested to come to the emergency department. Getting out of the house apparently is quite difficult. She has a enough stiffness and overall rigidity that getting out of her recliner chair into the car is challenging and when she is in the car the movement tends to cause significant issues as well. When asked what main goals of care were today the replied they were looking for help with pain control and her also had questions about where to go next if her care becomes overwhelming enough that she needs to be in any type of facility. They were also planning on catching the [email or web address] in approximately an hour. Related Data Home Medications Medication Instructions Recorded Confirmed cholecalciferol (vitamin D3) 50 50 mcg PO DAILY 07/27/20 11/04/20 mcg (2,000 unit) capsule cyanocobalamin (vitamin B-12) 100 2,500 mcg PO DAILY 10/15/20 11/04/20 mcg tablet Previous Rx's Medication Instructions Recorded diazepam 5 mg tablet 5 mg PO QAM PRN anxiety #30 tabs 10/28/20 clonazepam 0.5 mg tablet 0.25 mg (1/2 x 0.5 mg) PO BEDTIME 11/05/20 #10 tabs donepezil 5 mg tablet (Aricept) 5 mg PO DAILY #30 tabs 11/05/20 clonazepam 0.25 mg disintegrating 0.25 mg PO BEDTIME #14 tabs 03/05/23 tablet Allergies Allergy/AdvReac Type Severity Reaction Status Date / Time diphenhydramine Allergy Mild Verified 11/04/20 19:22 [From Benadryl] paclitaxel [From TAXOL] Allergy Mild Verified 11/04/20 19:22 lorazepam [From Ativan] Allergy Unknown Verified 11/04/20 19:22 adhesive AdvReac Unknown rash Verified 11/04/20 19:22 Review of Systems Review of Systems Narrative: She is not had significant weight loss over the last 2 years. She rarely gets out bed, has difficulty with swallowing, sleeping. Her isn't reporting significant hallucinations. Patient reports difficulty in focusing and concentrating. There are no complaints of chest pain, palpitations, fevers, nausea, vomiting. She apparently does have significant difficulty with constipation. 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 Seborrhea capitis in adult AYALA (dyspnea on exertion) Arthritis, lumbar spine Spondylosis Tubular adenoma of colon PSVT (paroxysmal supraventricular tachycardia) (~2001) History of malignant neoplasm of lung (06/30/14) Surgical History (Updated 11/09/20 @ 19:13 by Margret Feng) Anesthesia History of lung surgery History of surgery (~2001) Family History (Updated 11/09/20 @ 19:15 by Margret Feng) Sister COPD (chronic obstructive pulmonary disease) Hypertension Father Congestive heart failure Hyperlipidemia Hypertension Bladder cancer Mother Alzheimer disease CAD (coronary artery disease) Hypertension Hyperlipidemia Social History household members: spouse Smoking Status: Never smoker alcohol intake: former during the past year weight has: increased > 10 lbs well-balanced diet: about half the time Smoking Status: Never smoker Substance Use Type: does not use Exam Initial Vital Signs Initial Vital Signs: Vital Signs Temperature 97.8 F 03/05/23 16:44 Pulse Rate 88 03/05/23 16:44 Respiratory Rate 16 03/05/23 16:44 Blood Pressure 137/86 03/05/23 16:44 Pulse Oximetry 98 03/05/23 16:44 Oxygen Delivery Method Room Air 03/05/23 16:44 General: Chronically ill-appearing but in no acute distress. HEENT: Dry mucous membranes, normal sclera with reactive pupils, multiple areas of concern for squamous cell cancer over her forehead Respiratory: Lungs are clear to auscultation, no wheezing no rales no rhonchi. Full and symmetrical air movement Cardiac: Regular rate and rhythm no murmurs no bruits Abdomen: Soft, nontender, good bowel tones, no flank pain Skin: Warm and dry, no rashes, no skin breakdown or pressure ulcers Neurologic: Significant muscle rigidity with cogwheeling. No significant tremor. She has difficulty bending her legs at hips knee or ankle Extremities: No trauma, well perfused Psych: Flat affect, intermittent interaction but provides the majority of history Course Orders Ordered: Discontinued Medications Aspirin (Aspirin 81 Mg Chew Tab) 324 mg PO NOW ONE Stop: 03/05/23 17:11 Last Admin: 03/05/23 17:23 Dose: Not Given Documented By: KF Vital Signs Vital signs: Vital Signs - 8 hr 03/05/23 16:44 03/05/23 17:14 03/05/23 17:14 Temperature 97.8 F Pulse Rate 88 79 Respiratory Rate 16 Blood Pressure 137/86 192/94 H Pulse Oximetry 98 97 Oxygen Delivery Method Room Air 03/05/23 17:30 03/05/23 17:30 Temperature Pulse Rate 70 Respiratory Rate 16 Blood Pressure 143/82 H Pulse Oximetry 98 Oxygen Delivery Method Medical Decision Making Lab Data 03/05/23 17:17 03/05/23 17:17 Labs: Lab Results 03/05/23 Range/Units 17:17 WBC 8.2 (4.5-11.0) X10^3/uL RBC 4.73 (4.0-5.2) X10^6/uL Hgb 15.1 (12.0-16.0) g/dL Hct 44.3 (36-46) % MCV 93.7 (80-100) fL MCH 32.0 (26-34) PG MCHC 34.1 (30-36) % RDW 13.5 (11.6-14.8) % Plt Count 391 (150-400) X10^3/uL Neut % (Auto) 71.4 (50-75) % Lymph % (Auto) 18.4 L (25-40) % [place] % (Auto) 8.0 (3-14) % Eos % (Auto) 1.5 L (2-4) % Baso % (Auto) 0.7 (0-2) % Neut # (Auto) 5900 (0604-6390) /uL Lymph # (Auto) 1500 (6657-3424) /uL [place] # (Auto) 700 (0-900) /uL Eos # (Auto) 100 (0-450) /uL Baso # (Auto) 100 (0-100) /uL PT 11.6 (9.4-12.5) SECONDS INR 1.0 (0.9-1.3) APTT 32 (25.1-36.5) SECONDS Sodium 140 (137-145) mmol/L Potassium 4.0 (3.4-5.1) mmol/L Chloride 105 (98-107) mmol/L Carbon Dioxide 25 (22-32) mmol/L BUN 20 H (7-17) mg/dL Creatinine 0.67 (0.52-1.04) mg/dL Estimated GFR > 60 (>60) mL/min BUN/Creatinine Ratio 29.9 H (6-22) Glucose 106 (80-110) mg/dL Calcium 10.1 (8.4-10.2) mg/dL Magnesium 2.1 (1.6-2.3) mg/dL Total Bilirubin 1.0 (0.2-1.3) mg/dL AST 29 (14-36) IU/L ALT 28 (<35) IU/L Alkaline Phosphatase 68 (38-126) U/L Total Creatine Kinase 24 L (30-135) U/L Troponin I < 0.012 (0.01-0.034) ng/mL Total Protein 7.5 (6.3-8.2) g/dL Albumin 4.2 (3.5-5.0) g/dL Globulin 3.3 (1.7-4.1) g/dL Albumin/Globulin Ratio 1.3 (1.0-2.8) Lipase 129 (23-300) U/L MDM Narrative Medical decision making narrative: 67-year-old woman with clinically advanced Parkinson's disease with severe rigidity to the point that mobility is dramatically impaired. She and her are looking for help with pain control. We had a long discussion regarding their goals of care, there open this to considering allopathic medications and realistic expectations. They were willing to try some medications but were not interested in prolonged medications or any medications for her Parkinson's disease. With shared decision-making and in light of their Anglican human factors scientist beliefs and overall goals of care as well as desire to get to the last evening [facility], we opted to not do any additional imaging or lab workup as it would not change current recommendations. Her has already contacted the hospice nurse available on [facility]. That nurse is apparently also responsible for helping with in-home care. We talked about following up with this contact. I also encouraged him to contact the [facility] to establish primary care. Apparently every time they go there it is more on an urgent care basis and they have always been instructed to simply go onto [place] in the emergency department. I suggested that he let them know that they do not want additional care they do need help with primary care and referrals for home health. Possibility of home health particularly with bathing was particularly appealing to both patient and her . We discussed possible treatments that would fit within there expected medical construct. Please see discharge instructions for my recommendations. Finally, we discussed need for possible long-term placement. At this point the patient is well beyond assisted living will need [place] [facility] care and given the degree of nursing required along with the cognitive decline will not likely be appropriate for even a dementia facility. I encouraged the patient's to contact some of these facilities specifically so that he can become better educated. Again encouraged him to follow up with the hospice nurse with whom he is already left a message to see what options are available on the [place] that may allow the patient to remain at home and also allow a small amount of time for her to make sure that he is getting adequate sleep and self-care as well. Social work referral in the emergency department was offered however due to time constraints in wanting to return home was declined. In total 52 minutes of counseling and discussion Discharge Plan Departure Patient Disposition: Home Clinical Impression: Parkinsonism Qualifiers: Parkinsonism type: unspecified Qualified Code(s): G20.C - Parkinsonism, unspecified Instructions: DI for Parkinson Disease Activity Restrictions/Additional Instructions: Thank you for coming in today The situation that you are in is quite difficult. As we discussed continuing to look for available resources on the [place] including establishing with a primary care doctor at the [facility], following up with the hospice nurse to see if hospice enrollment itself may be helpful(you do not need a physician to do this), see what recommendations the hospice nurse may have for home healthcare will be helpful. Some of the home healthcare is going to require a primary care doctor to sign orders which brings us back to making sure you get in to establish care with a doctor on [place]. Regarding future care if care progresses to the point that Young is not able to remain at home, I would encourage you to begin calling some of the [place] [facility] [place] facilities in the area. Your level of care is going to be such that you will need [place] [facility] care. Even if there are increasing memory issues, your parkinsonian symptoms are such that [place] [facility] [place] placement is still going to be the appropriate option. I would encourage you to look up [place] [facility] facilities and since your familiar with home place, beginning with them and calling to get a bit more information. In terms of a stepwise approach to try to help with the muscle spasm and tightness here are a couple of suggestions: 1. Try finding some massage oil that has arnica. There are multiple shops that sell natural medical treatments on [facility]. Using the arnica ointment in conjunction with the massage that you are already doing to help with the muscle spasm maybe quite helpful 2. Try 2 Tylenol up to every 6 hours with the pain and muscle spasm. 3. Try .25mg of Clonazepam to help with overall sleep and sleep architecture as well as muscle relaxation. This is a benzodiazepine medication and I will give you a prescription to fill. If it is causing adverse effects then please stop it. It is okay to combine all 3 of the above suggestions simultaneously If you find that you are getting worse or develop any new symptoms, please feel free to return to the emergency department for further evaluation. Prescriptions: New clonazepam 0.25 mg tablet,disintegrating 0.25 mg PO BEDTIME Qty: 14 3RF Rx Instructions: administer 30 minutes before bedtime No Action cyanocobalamin (vitamin B-12) 100 mcg tablet 2,500 mcg PO DAILY diazepam 5 mg tablet 5 mg PO QAM PRN (Reason: anxiety) Qty: 30 2RF Rx Instructions: EXEMPT donepezil [Aricept] 5 mg tablet 5 mg PO DAILY Qty: 30 0RF clonazepam 0.5 mg tablet 0.25 mg PO BEDTIME Qty: 10 0RF Rx Instructions: administer 30 minutes before bedtime cholecalciferol (vitamin D3) 50 mcg (2,000 unit) capsule 50 mcg PO DAILY Referrals: New Min MD [Primary Care Provider] - Stand Alone Forms: Patient Portal/API
--- NOTE | 2023-03-05 19:02 | PC.NURSE ---
Dr. Chow at bedside
== END 2023-03-05 20:06 | disposition home or self-care (01) ==
PROVIDERS: Emergency Medicine; Emergency Provider Emergency Medicine; PCP Student in an Organized Health Care Education/Training Program
DX: G20.C Parkinsonism, unspecified (principal); R07.9 Chest pain, unspecified
CPT/HCPCS: 36415; 71045; 80053; 82550; 83690; 83735; 84484; 85025; 85610; 85730; 93005; 93010; 99283; 99284

== ENCOUNTER 2024-12-30 20:52 | Emergency (ER) | payer MEDICARE, SELFPAY ==
[2024-12-30 21:19] VITALS: BP 139/79; PULSE 96; RESP 16; TEMP 36.4; O2SAT 96; BMI 16.6
--- NOTE | 2024-12-30 21:22 | DI.RAD.S_ITS ---
PROCEDURE: XR ABDOMEN 1V INDICATIONS: constipation TECHNIQUE: One view of the abdomen acquired. COMPARISON: None. FINDINGS: Surgical changes and devices: None. Bowel: Bowel gas pattern is normal. Large stool burden. Soft tissues: No suspicious abdominal calcifications. Visualized solid organ contours appear normal in size. Bones: No suspicious bony lesions. IMPRESSION: Large stool burden. Nonobstructive bowel gas pattern. Dictated by: Quincy Avendano M.D. on 12/30/2024 at 21:49 Approved by: Quincy Avendano M.D. on 12/30/2024 at 21:50
[2024-12-31 00:37] VITALS: PULSE 101; O2SAT 93
[2024-12-31 00:38] VITALS: BP 147/81; PULSE 101; O2SAT 94
[2024-12-31 01:00] VITALS: BP 135/77; PULSE 87; O2SAT 93
[2024-12-31 01:30] VITALS: BP 130/78; PULSE 87; O2SAT 94
--- NOTE | 2024-12-31 01:42 | ED.ABDPAIN ---
HPI - Abdominal Pain General Chief Complaint: Abdominal Pain Stated Complaint: lung constipation Time Seen by Provider: 12/31/24 00:39 Source: family Mode of arrival: Wheelchair History of Present Illness HPI narrative: 69-year-old female with the history of Parkinson's disease presents with constipation for several weeks. Her movement has gotten a lot more difficult. Patient is lying in the bed with her eyes closed but is responsive and answers appropriately. According to her , patient was last seen and admitted for this Parkinson like movement back in 2020 at [facility]. They were given this dopaminergic agent and said that if it worked it was more likely Parkinson's. The agent however did not work after being tried for several weeks and so there is more likely some other motility disorder. Related Data Home Medications ?Medication ?Instructions ?Recorded ?Confirmed cholecalciferol (vitamin D3) 50 50 mcg PO DAILY 07/27/20 11/04/20 mcg (2,000 unit) capsule cyanocobalamin (vitamin B-12) 100 2,500 mcg PO DAILY 10/15/20 11/04/20 mcg tablet Previous Rx's ?Medication ?Instructions ?Recorded diazepam 5 mg tablet 5 mg PO QAM PRN anxiety #30 tabs 10/28/20 clonazepam 0.5 mg tablet 0.25 mg (1/2 x 0.5 mg) PO BEDTIME 11/05/20 #10 tabs donepezil 5 mg tablet (Aricept) 5 mg PO DAILY #30 tabs 11/05/20 clonazepam 0.25 mg disintegrating 0.25 mg PO BEDTIME #14 tabs 03/05/23 tablet Allergies Allergy/AdvReac Type Severity Reaction Status Date / Time diphenhydramine (From Allergy Mild Verified 12/30/24 21:19 Benadryl) paclitaxel (From TAXOL) Allergy Mild Verified 12/30/24 21:19 lorazepam (From Ativan) Allergy Unknown Verified 12/30/24 21:19 adhesive AdvReac Unknown rash Verified 12/30/24 21:19 Review of Systems Review of Systems ROS Unobtainable: All systems reviewed & are unremarkable except as noted in HPI and below Patient History Medical History (Updated 12/31/24 @ 01:58 by Marquis Dallas MD) Wears glasses (~2020) Hay fever Anxiety (~2020) Hearing loss Hemorrhoid Lung cancer (~2005) 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 Seborrhea capitis in adult AYALA (dyspnea on exertion) Arthritis, lumbar spine Spondylosis Tubular adenoma of colon PSVT (paroxysmal supraventricular tachycardia) (~2001) History of malignant neoplasm of lung (06/30/14) Surgical History (Updated 11/09/20 @ 19:13 by Margret Feng) Anesthesia History of lung surgery History of surgery (~2001) Family History (Updated 11/09/20 @ 19:15 by Margret Feng) Sister COPD (chronic obstructive pulmonary disease) Hypertension Father Congestive heart failure Hyperlipidemia Hypertension Bladder cancer Mother Alzheimer disease CAD (coronary artery disease) Hypertension Hyperlipidemia Social History household members: spouse Smoking Status: Never smoker alcohol intake: former during the past year weight has: increased > 10 lbs well-balanced diet: about half the time Smoking Status: Never smoker Exam Narrative Exam Narrative: General: Patient is laying down with her eyes closed but does respond appropriately. Head: normocephalic, atraumatic, HEENT: Pupils equal round reactive but keeps them shut Heart: regular rate and rhythm, no murmurs, rubs, or gallops heard Lungs: clear to auscultation, no adventitious sounds Abdomen: soft , nontender, nondistended, positive bowel sounds Neurological: Slower movements in general. Psych: good judgment ,good insight, mood is normal. Initial Vital Signs Initial Vital Signs: Vital Signs Temperature 97.6 F 12/30/24 21:19 Pulse Rate 96 H 12/30/24 21:19 Respiratory Rate 16 12/30/24 21:19 Blood Pressure 139/79 12/30/24 21:19 Pulse Oximetry 96 12/30/24 21:19 Oxygen Delivery Method Room Air 12/30/24 21:19 Course Orders Ordered: ED Orders 12/30/24 21:22 XR abdomen 1V Stat Discontinued Medications Magnesium Citrate (Magnesium Citrate 300 Ml Solution) 300 ml PO NOW ONE Stop: 12/31/24 01:44 Last Admin: 12/31/24 01:59 Dose: 300 ml Documented By: TEQUILA Vital Signs Vital signs: Vital Signs - 8 hr 12/30/24 21:19 12/31/24 00:37 12/31/24 00:38 Temperature 97.6 F Pulse Rate 96 H 101 H Respiratory Rate 16 Blood Pressure 139/79 147/81 H Pulse Oximetry 96 93 Oxygen Delivery Method Room Air Room Air 12/31/24 00:38 12/31/24 01:00 12/31/24 01:00 Temperature Pulse Rate 101 H 87 Respiratory Rate Blood Pressure 135/77 Pulse Oximetry 94 93 Oxygen Delivery Method Room Air Room Air 12/31/24 01:30 12/31/24 01:30 12/31/24 02:00 Temperature Pulse Rate 87 Respiratory Rate Blood Pressure 130/78 145/82 H Pulse Oximetry 94 Oxygen Delivery Method Room Air 12/31/24 02:00 Temperature Pulse Rate 84 Respiratory Rate Blood Pressure Pulse Oximetry 94 Oxygen Delivery Method Room Air MDM - Abdominal Pain MDM Narrative Medical decision making narrative: 69-year-old female with some sort of motility disorder presents with prolonged constipation. will do a trial of magnesium citrate at home and advised to follow up if constipation still becomes an issue. Discharge Plan Departure Patient Disposition: Home Clinical Impression: Constipation Qualifiers: Constipation type: other constipation type Qualified Code(s): K59.09 - Other constipation Instructions: DI for Constipation Activity Restrictions/Additional Instructions: Use the magnesium citrate in his entirety. If it is unsuccessful, come back to the ER. Follow up with PCP to look into more reasons for this movement disorder. Prescriptions: No Action cyanocobalamin (vitamin B-12) 100 mcg tablet 2,500 mcg PO DAILY diazepam 5 mg tablet 5 mg PO QAM PRN (Reason: anxiety) Qty: 30 2RF Rx Instructions: EXEMPT donepezil [Aricept] 5 mg tablet 5 mg PO DAILY Qty: 30 0RF clonazepam 0.5 mg tablet 0.25 mg PO BEDTIME Qty: 10 0RF Rx Instructions: administer 30 minutes before bedtime clonazepam 0.25 mg tablet,disintegrating 0.25 mg PO BEDTIME Qty: 14 3RF Rx Instructions: administer 30 minutes before bedtime cholecalciferol (vitamin D3) 50 mcg (2,000 unit) capsule 50 mcg PO DAILY Referrals: Sharon Yao MD [Primary Care Provider, Family Practice] Stand Alone Forms: Patient Portal/API
[2024-12-31] MEDS: MAGNESIUM CITRATE 300 ML SOLUTION PO (01:59)
[2024-12-31 02:00] VITALS: BP 145/82; PULSE 84; O2SAT 94
== END 2024-12-31 02:21 | disposition home or self-care (01) ==
PROVIDERS: Emergency Provider Family Medicine; PCP Family Medicine
DX: K59.09 Other constipation (principal)
CPT/HCPCS: 74018; 99283